=== PATIENT | male | born 1940 | race Caucasian/White ===

== ENCOUNTER → 2016-10-28 | Outpatient (CLI) | payer MEDICARE ==
[2016-10-28 07:56] LABS: CH 30.1; CHCM 33.4; HCT 45.4 % (39.0-53.0); HDW 2.81; HGB 14.7 gm/dL (13.0-17.5); MCH 29.2 pg (25.0-35.0); MCHC 32.3 g/dL (31.0-37.0); MCV 90.6 fL (80.0-100.0); Mean Platelet Volume 7.2; RBC 5.01 m/uL (4.30-5.90); RDW 13.6 % (11.5-15.5); WBC 6.2 k/uL (3.8-10.6)
[2016-10-28 08:00] LABS: Appearance,Urine Clear (Clear); Bilirubin,Urine Negative (Negative); Glucose,Urine (UA) Negative (Negative); Ketones,Urine Negative (Negative); Leukocyte Esterase,Urine Negative (Negative); Mucus,Urine Rare /hpf; Nitrite,Urine Negative (Negative); Particle Count 614; Protein,Urine 3+ (Negative); RBC,Urine <1 /hpf (0-5); Specific Gravity,Urine 1.013 (1.001-1.035); Squamous Epithelial Cell,Urine <1 /hpf (0-4); UA Billing (MACRO vs. MICRO) MICRO; Urobilinogen,Urine <2.0 mg/dL (<2.0); WBC,Urine 1 /hpf (0-5)
[2016-10-28 11:10] LABS: Hemoglobin A1C 7.8 % (4.2-6.1)
[2016-10-28 12:14] LABS: ALT 44 U/L (21-72); AST 29 U/L (17-59); Alkaline Phosphatase 60 U/L (38-126); Anion Gap 11 mmol/L; Blood Urea Nitrogen 23 mg/dL (9-20); Calcium 9.6 mg/dL (8.4-10.2); Carbon Dioxide 26 mmol/L (22-30); Chloride 105 mmol/L (98-107); Cholesterol 147 mg/dL (<200); Glucose 162 mg/dL (74-99); HDL Cholesterol 55 mg/dL (40-60); Non-African American GFR(MDRD) 59 (>60 ml/min/1.73 sqM); Potassium 4.8 mmol/L (3.5-5.1); Sodium 142 mmol/L (137-145); Total Bilirubin 0.7 mg/dL (0.2-1.3); Total Protein 7.2 g/dL (6.3-8.2); Triglycerides 181 mg/dL (<150)
== END | disposition home or self-care (01) ==
LOC: LABWHC1 07:19
PROVIDERS: ATTEND Internal Medicine
DX: E11.9 Type 2 diabetes mellitus without complications (principal); N40.0 Benign prostatic hyperplasia without lower urinary tract symptoms; E78.5 Hyperlipidemia, unspecified
CPT/HCPCS: 80061; 80053; 83036; 85027; 81001; 82043; 36415; G0103

== ENCOUNTER → 2017-06-16 | Outpatient (CLI) | payer MEDICARE ==
[2017-06-16 07:26] LABS: Basophils % (A) 0 %; CH 30.5; CHCM 33.1; Eosinophils # (A) 0.2 k/uL (0-0.7); Eosinophils % (A) 3 %; HCT 47.1 % (39.0-53.0); HDW 2.85; HGB 15.6 gm/dL (13.0-17.5); Luc # (Auto) 0.22; Luc % (Auto) 3; Lymphocytes # (A) 1.7 k/uL (1.0-4.8); Lymphocytes % (A) 22 %; MCH 30.6 pg (25.0-35.0); MCHC 33.1 g/dL (31.0-37.0); MCV 92.5 fL (80.0-100.0); Mean Platelet Volume 7.4; Monocytes # (A) 0.5 k/uL (0-1.0); Monocytes % (A) 7 %; Neutrophils # (A) 4.8 k/uL (1.3-7.7); Neutrophils % (A) 64 %; RBC 5.09 m/uL (4.30-5.90); RDW 13.6 % (11.5-15.5); WBC 7.4 k/uL (3.8-10.6); WBC (Perox) 8.22
[2017-06-16 07:56] LABS: ALT 58 U/L (21-72); AST 30 U/L (17-59); Alkaline Phosphatase 73 U/L (38-126); Anion Gap 12 mmol/L; Blood Urea Nitrogen 21 mg/dL (9-20); Calcium 9.6 mg/dL (8.4-10.2); Carbon Dioxide 24 mmol/L (22-30); Chloride 103 mmol/L (98-107); Cholesterol 154 mg/dL (<200); Glucose 276 mg/dL (74-99); HDL Cholesterol 45 mg/dL (40-60); Non-African American GFR(MDRD) 54 (>60 ml/min/1.73 sqM); Potassium 4.9 mmol/L (3.5-5.1); Sodium 139 mmol/L (137-145); Total Bilirubin 0.5 mg/dL (0.2-1.3); Total Protein 7.2 g/dL (6.3-8.2)
[2017-06-16 11:34] LABS: Urine Creatinine 143.8 mg/dL
[2017-06-16 12:43] LABS: Hemoglobin A1C 8.5 % (4.2-6.1)
== END | disposition home or self-care (01) ==
LOC: LABWHC1 06:33
PROVIDERS: ATTEND Internal Medicine Endocrinology, Diabetes & Metabolism
DX: E11.65 Type 2 diabetes mellitus with hyperglycemia (principal); I10 Essential (primary) hypertension
CPT/HCPCS: 36415; 80053; 80061; 82043; 82306; 82570; 83036; 85025

== ENCOUNTER → 2017-09-14 | Outpatient (CLI) | payer MEDICARE ==
[2017-09-14 10:27] LABS: ALT 48 U/L (21-72); AST 21 U/L (17-59); Albumin 3.9 g/dL (3.5-5.0); Alkaline Phosphatase 63 U/L (38-126); Anion Gap 10 mmol/L; Blood Urea Nitrogen 21 mg/dL (9-20); Calcium 9.6 mg/dL (8.4-10.2); Carbon Dioxide 25 mmol/L (22-30); Chloride 106 mmol/L (98-107); Cholesterol 260 mg/dL (<200); Glucose 222 mg/dL (74-99); HDL Cholesterol 46 mg/dL (40-60); LDL Cholesterol,Calculated 139 mg/dL (0-99); Potassium 4.6 mmol/L (3.5-5.1); Sodium 141 mmol/L (137-145); Total Bilirubin 0.4 mg/dL (0.2-1.3); Total Protein 6.9 g/dL (6.3-8.2); Triglycerides 376 mg/dL (<150)
[2017-09-14 10:55] LABS: PSA Annual Screen 0.75 ng/mL (0.00-4.00)
[2017-09-14 12:48] LABS: Hemoglobin A1C 9.3 % (4.0-6.0)
== END ==
LOC: LABWHC1 06:39
PROVIDERS: ATTEND Internal Medicine Endocrinology, Diabetes & Metabolism
DX: E11.65 Type 2 diabetes mellitus with hyperglycemia (principal); I10 Essential (primary) hypertension; E78.2 Mixed hyperlipidemia
CPT/HCPCS: 80061; 80053; 82306; 83036; 36415; G0103

== ENCOUNTER 2017-09-28 08:00 | Day surgery (SDC) | payer MEDICARE ==
[2017-09-27 12:19] VITALS: BMI 29.8
[~2017-09-28 08:00] MED LIST: LACTATED RINGERS 1,000 ML IV SCH
[2017-09-28 09:37] VITALS: TEMP 97.7
[2017-09-28] MEDS ORDERED: LIDOCAINE 1% 20 ML VIAL (10MG/ML) FOR IV START INTRADERMA ONE (09:37)
[2017-09-28 09:40] LABS: Glucose,Whole Blood 192 mg/dL (75-99)
--- NOTE | 2017-09-28 09:51 | P.PCN ---
Date of Procedure: 09/28/17 Surgeon: Woodrow Lopez Pathology: none sent Condition: stable Disposition: PACU Description of Procedure: PREOPERATIVE DIAGNOSIS: 1-Bilateral sacroiliitis. 2 Lumbar DDD POSTOPERATIVE DIAGNOSIS:. 1-Bilateral sacroiliitis. 2 Lumbar DDD PROCEDURES: Bilateral Sacroiliac joint steroid injection with fluoroscopic guidance ANESTHESIA: Local with 1% lidocaine; conscious sedation EBL: Minimal. PROCEDURE INDICATIONS: This patient with a history of low back pain secondary to sacroiliitis and lumbar DDD unresponsive to conservative management. No use of blood thinners, SIJ injection #1 today. PROCEDURE DESCRIPTION: The patient was seen and identified in the preoperative area. Risks, benefits, complications, and alternatives were discussed with the patient (including but not limited to incomplete pain relief, bleeding, infection, nerve damage, and allergies to medications), the patient agreed to proceed with the procedure and signed the consent after all questions were answered. Patient was taken to the OR and time out was completed to verify proper patient , position, laterality of pain, and allergies. Pt was placed in the prone position and a pillow was placed under the abdomen to reduce lumbar lordosis. The lumbosacral area was prepped and draped in the usual sterile fashion. Critical pause was taken. Vital signs were closely monitored during the procedure. The fluoroscopic camera was placed in contralateral oblique view and right sacroiliiac joint lower pole was identified. After local infiltration with 1% lidocaine 2 ml, Subsequently, a 22-gauge 3.5 inch spinal needle was introduced into the posteroinferior aspect of the right sacroiliac joint under direct fluoroscopic visualization. Subsequently, 3 ml of a solution of a total of 6 ml solution containing total 4 mL of 0.5% preservative-free bupivicaine mixed with 40 mg of Kenalog was injected after negative aspiration for CSF, blood, and air and negative for paresthesia. The entire procedure was repeated on the left side as above. Needle was withdrawn intact. Skin was cleansed, and bandages were applied. COMPLICATIONS: None. COMMENTS: DISPOSITION / PLANS: The patient was placed in a supine position and transferred to the recovery area in a stable condition for observation and was discharged from the recovery room after meeting discharge criteria. Home discharge instructions given to the patient by the staff. The patient was reexamined prior to discharge and there were no issues. The patient will schedule a visit in clinic in 3-4 weeks.
[2017-09-28 10:03] VITALS: RESP 18
[2017-09-28 10:23] VITALS: BP 178/83; PULSE 67
[2017-09-28] MEDS ORDERED: IV FLUID CONTINUATION 1,000 ML IV ONE (10:23)
--- NOTE | 2017-09-28 11:16 | FL ---
EXAMINATION TYPE: FL guided pain mgmt statistic DATE OF EXAM: 09/28/2017 HISTORY: Flouroscopy time 5 seconds of fluoroscopy provided. IMPRESSION: 1. Fluoroscopy time.
== END 2017-09-28 10:30 | disposition home or self-care (01) ==
LOC: ORPAIN 08:00
PROVIDERS: ATTEND Anesthesiology
DX: M46.1 Sacroiliitis, not elsewhere classified (principal); M51.36 Other intervertebral disc degeneration, lumbar region; I10 Essential (primary) hypertension; E11.9 Type 2 diabetes mellitus without complications
CPT/HCPCS: J3301; Q9965; J2001; G0260

== ENCOUNTER → 2017-10-25 | Outpatient (CLI) | payer MEDICARE ==
[2017-10-25 13:00] VITALS: BP 159/82; PULSE 72; RESP 16
--- NOTE | 2017-10-25 13:02 | P.PN ---
Progress Note - Text Progress Note Date: 10/25/17 Patient returns for followup for chronic back pain with radiation to hips. Patient recently underwent bilateral SIJ injection x 1, which provided some relief for only 4-5 days' interval. Patient continues on OTC Motrin and Tylenol medications for pain with mild relief. Patient denies adverse drug effects from medications. Today, pt denies new-onset weakness, bowel/bladder incontinence, or any other signs or symptoms of cauda equina syndrome. There are no signs of acute intoxication, and no indications of medication diversion or overuse. In addition to above, 13-point review of systems is also negative for chest pain , shortness of breath, changes in vision, changes in hearing, new onset weakness , abdominal pain, diarrhea, extreme fatigue, malaise, fever, skin changes, homicidal or suicidal ideation, or bowel or bladder incontinence. Vital Signs: Reviewed in EMR Gen: WDWN, AAOx3, NAD HEENT: NCAT, EOMI, hearing grossly normal Pulm: resp unlabored Abd: soft, NT, ND Neck: supple, trachea midline ROM in flexion lumbar spine: reduced ROM in extension lumbar spine: reduced Lumbar paravertebral tenderness: + Facet loading: + bilateral, L > R SI joint tenderness: + L > R Abhay's test: + L > R Straight leg raise: neg Lower extremity: decreased ROM dorsiflexion/plantarflexion strength, hip flexion/extension, and knee flexion/extension secondary to pain Neuro: CN II-XII grossly intact, muscle strength lower extremities PRESERVED Imaging: Reviewed in EMR Assessment: 1. lumbar PLPS 2. SIJ dysfunction 3. lumbar spondylosis 4. chronic pain syndrome Plan: 1. Explanation: Opioid and psychological risk scores were reviewed. Diagnoses , prognoses, and multiple treatment options including but not limited to physical therapy, interventional therapies, adjuvant medical therapies, narcotic medication therapies, and surgery were discussed with the patient and all questions were answered to the patient's satisfaction. 2. Opioid agreement: no opioids prescribed today 3. Counseling: The patient was counseled extensively on BODY MASS INDEX, EXERCISE. Specifically, the patient was instructed regarding the importance of weight control, and exercise in the context of both chronic pain and overall health. 4. Procedures: lumbar MBB bilateral L3-S1 5. Consultations: none 6. Investigations: none 7. Medications: none prescribed 8. Disposition: f/u for procedure as scheduled PQRS measures: 1-Patient's medications are documented in the chart. 2-Tobacco use is negative 3-Patient has not had a pneumococcal vaccine. 4-Advanced care planning discussed, patient unable to give. 5-Opioid contract NOT signed with the patient. 6-Pain positive, follow-up visit or procedure scheduled 7-Patient's blood pressure measured and documented, and patient will follow up with the primary care due to hypertension. 8-Patient's weight was measured, and body mass index ABOVE the normal limits, and counseling was done. Patient instructed to follow up with PCP. 9-Patient WAS NOT identified as an unhealthy alcohol user.
== END | disposition home or self-care (01) ==
LOC: PNWHC3 12:28
PROVIDERS: ATTEND Anesthesiology
DX: G89.4 Chronic pain syndrome (principal); M54.9 Dorsalgia, unspecified; M47.816 Spondylosis without myelopathy or radiculopathy, lumbar region; M53.88 Other specified dorsopathies, sacral and sacrococcygeal region; G97.1 Other reaction to spinal and lumbar puncture; Z79.1 Long term (current) use of non-steroidal anti-inflammatories (NSAID); Z79.891 Long term (current) use of opiate analgesic
CPT/HCPCS: 99211

== ENCOUNTER 2017-11-17 07:11 | Day surgery (SDC) | payer MEDICARE ==
[2017-11-15 10:16] VITALS: BMI 29.9
[2017-11-17 07:30] VITALS: TEMP 98
[2017-11-17] MEDS ORDERED: LACTATED RINGERS 1,000 ML IV ONE (07:31)
[2017-11-17] MEDS ORDERED: LIDOCAINE 1% 20 ML VIAL (10MG/ML) FOR IV START INTRADERMA ONE (07:31)
--- NOTE | 2017-11-17 08:09 | P.PCN ---
Date of Procedure: 11/17/17 Surgeon: Woodrow Lopez Pathology: none sent Condition: stable Disposition: PACU Description of Procedure: PREOPERATIVE DIAGNOSIS: Lumbar spondylosis without myelopathy and facet arthropathy. POSTOPERATIVE DIAGNOSIS: Lumbar spondylosis without myelopathy and facet arthropathy. PROCEDURE DESCRIPTION: Patient presents for L3-L4, L4-L5 and L5-S1 diagnostic medial branch blocks under fluoroscopic guidance. The procedure is performed using fluoroscopic guidance during needle placement to assure proper position and maximize safety. ANESTHESIA: Local with 1% lidocaine; conscious sedation EBL: Minimal PROCEDURE INDICATION: Patient with lumbar facet arthropathy signs and symptoms, here for diagnostic medial branch block #1 today. Pt does not take any blood thinning medications. PROCEDURE DESCRIPTION: The patient was seen and identified in the preoperative area. Risks, benefits, complications, and alternatives were discussed with the patient (including but not limited to incomplete pain relief, bleeding, infection, nerve damage, and allergies to medications), the patient agreed to proceed with the procedure and signed the consent after all questions were answered. Patient was taken to the OR and time out was completed to verify proper patient, position, laterality of pain, and allergies. Pt was placed in the prone position and a pillow was placed under the abdomen to reduce lumbar lordosis. The lumbosacral area was prepped and draped in the usual sterile fashion. Using oblique fluoroscopy, the eye of the "Dane dog" of right L4 vertebral body, which corresponds to the path of the medial branch originating from the level above, which is L3 in this case, was identified. Subsequently, a 22-gauge 3.5-inch spinal needle was inserted under fluoroscopic guidance toward the eye of the "Dane dog" of the right L4 vertebral body, corresponding to the junction of the superior articular process and the transverse process of the pedicle of the same level. After needle tip confirmation on lateral view and after negative aspiration for CSF and blood and without paresthesias, 1 mL of a 6 ml solution of 0.5% preservative-free bupivacaine and 40 mg Kenalog was injected. Subsequently the needle was withdrawn intact and the same procedure was repeated for the right L4, right L5, left L3, left L4, and left L5 medial branches which together with right L3 medial branch correspond to the sensory innervation of the bilateral L3-L4, L4-L5, and L5-S1 facet joints. Needle was withdrawn intact after each injection. At the end of the procedure, the skin was cleansed and bandages were applied. COMPLICATIONS: None. DISPOSITION/PLAN: The patient taken to the recovery area after the procedure in a stable condition for observation. Patient was reexamined prior to discharge and there were no issues. Patient was discharged home, accompanied by an adult, after meeting discharged criteria. Discharge instructions were give to the patient by the staff. Patient was specifically instructed not to drive today and to rest for the rest of the day.
[2017-11-17] MEDS ORDERED: IV FLUID CONTINUATION 600 ML IV ONE (08:16)
[2017-11-17 08:24] LABS: Glucose,Whole Blood 174 mg/dL (75-99)
[2017-11-17 08:25] VITALS: RESP 16
--- NOTE | 2017-11-17 08:58 | FL ---
EXAMINATION TYPE: FL guided pain mgmt statistic DATE OF EXAM: 11/17/2017 HISTORY: Flouroscopy time 14 seconds of fluoroscopy provided. IMPRESSION: 1. Fluoroscopy time.
[2017-11-17 09:04] VITALS: BP 153/70; PULSE 78
== END 2017-11-17 08:51 | disposition home or self-care (01) ==
LOC: ORPAIN 07:11
PROVIDERS: ATTEND Anesthesiology
DX: G89.4 Chronic pain syndrome (principal); M47.816 Spondylosis without myelopathy or radiculopathy, lumbar region; G54.6 Phantom limb syndrome with pain; M53.3 Sacrococcygeal disorders, not elsewhere classified; I10 Essential (primary) hypertension; E11.9 Type 2 diabetes mellitus without complications; Z79.1 Long term (current) use of non-steroidal anti-inflammatories (NSAID); Z79.899 Other long term (current) drug therapy
CPT/HCPCS: 64493; 64494; 64495; J2250; J3301; 99152

== ENCOUNTER 2017-12-15 06:27 | Day surgery (SDC) | payer MEDICARE ==
[2017-12-09 13:23] VITALS: BMI 29.0
[2017-12-15] MEDS ORDERED: LACTATED RINGERS 1,000 ML IV ONE (07:15)
[2017-12-15 07:23] VITALS: RESP 18; TEMP 98.4
[2017-12-15 07:49] LABS: Glucose,Whole Blood 155 mg/dL (75-99)
[2017-12-15] MEDS ORDERED: IV FLUID CONTINUATION 1,000 ML IV ONE (08:00)
[2017-12-15 08:24] VITALS: BP 143/75; PULSE 72
--- NOTE | 2017-12-15 08:31 | P.PCN ---
Date of Procedure: 12/15/17 Surgeon: Woodrow Lopez Pathology: none sent Condition: stable Disposition: PACU Description of Procedure: PREOPERATIVE DIAGNOSIS: Lumbar spondylosis without myelopathy and facet arthropathy. POSTOPERATIVE DIAGNOSIS: Lumbar spondylosis without myelopathy and facet arthropathy. PROCEDURE DESCRIPTION: Patient presents for L3-L4, L4-L5 and L5-S1 diagnostic medial branch block #2 under fluoroscopic guidance. The procedure is performed using fluoroscopic guidance during needle placement to assure proper position and maximize safety. ANESTHESIA: Local with 1% lidocaine; conscious sedation EBL: Minimal PROCEDURE INDICATION: Patient with lumbar facet arthropathy signs and symptoms, here for diagnostic medial branch block #2 today after 3 days >70% pain relief from MBB #1. Pt does not take any blood thinning medications. PROCEDURE DESCRIPTION: The patient was seen and identified in the preoperative area. Risks, benefits, complications, and alternatives were discussed with the patient (including but not limited to incomplete pain relief, bleeding, infection, nerve damage, and allergies to medications), the patient agreed to proceed with the procedure and signed the consent after all questions were answered. Patient was taken to the OR and time out was completed to verify proper patient, position, laterality of pain, and allergies. Pt was placed in the prone position and a pillow was placed under the abdomen to reduce lumbar lordosis. The lumbosacral area was prepped and draped in the usual sterile fashion. Using oblique fluoroscopy, the eye of the "Dane dog" of right L4 vertebral body, which corresponds to the path of the medial branch originating from the level above, which is L3 in this case, was identified. Subsequently, a 22-gauge 3.5-inch spinal needle was inserted under fluoroscopic guidance toward the eye of the "Dane dog" of the right L4 vertebral body, corresponding to the junction of the superior articular process and the transverse process of the pedicle of the same level. After needle tip confirmation on lateral view and after negative aspiration for CSF and blood and without paresthesias, 1 mL of a 6 ml solution of 0.5% preservative-free bupivacaine and 40 mg Kenalog was injected. Subsequently the needle was withdrawn intact and the same procedure was repeated for the right L4, right L5, left L3, left L4, and left L5 medial branches which together with right L3 medial branch correspond to the sensory innervation of the bilateral L3-L4, L4-L5, and L5-S1 facet joints. Needle was withdrawn intact after each injection. At the end of the procedure, the skin was cleansed and bandages were applied. COMPLICATIONS: None. DISPOSITION/PLAN: The patient taken to the recovery area after the procedure in a stable condition for observation. Patient was reexamined prior to discharge and there were no issues. Patient was discharged home, accompanied by an adult, after meeting discharged criteria. Discharge instructions were give to the patient by the staff. Patient was specifically instructed not to drive today and to rest for the rest of the day. Patient will follow up in clinic in 4-6 weeks for further evaluation.
--- NOTE | 2017-12-15 12:42 | FL ---
Fluoroscopy HISTORY: Pain 11 seconds fluoroscopy time supplied to the referring clinician. 6 intraoperative C-arm images docum ent the procedure. See dictated report from anesthesia.
== END 2017-12-15 08:53 | disposition home or self-care (01) ==
LOC: ORPAIN 06:27
PROVIDERS: ATTEND Anesthesiology
DX: M47.816 Spondylosis without myelopathy or radiculopathy, lumbar region (principal); I11.0 Hypertensive heart disease with heart failure; I50.9 Heart failure, unspecified; E11.9 Type 2 diabetes mellitus without complications; E78.5 Hyperlipidemia, unspecified
CPT/HCPCS: 64493; 64494; 64495; J2250; J3301; 99152

== ENCOUNTER → 2018-01-18 | Outpatient (CLI) | payer MEDICARE ==
--- NOTE | 2018-01-18 14:11 | P.PN ---
Progress Note - Text Progress Note Date: 01/18/18 Patient returns for followup for chronic back pain with radiation to hips. Patient recently underwent bilateral LMBB x 2, the second with > 70% relief of his pain for two weeks. Patient continues on OTC Motrin and Tylenol medications for pain with mild relief. Patient denies adverse drug effects from medications. Today, pt denies new-onset weakness, bowel/bladder incontinence, or any other signs or symptoms of cauda equina syndrome. There are no signs of acute intoxication, and no indications of medication diversion or overuse. In addition to above, 13-point review of systems is also negative for chest pain , shortness of breath, changes in vision, changes in hearing, new onset weakness , abdominal pain, diarrhea, extreme fatigue, malaise, fever, skin changes, homicidal or suicidal ideation, or bowel or bladder incontinence. Vital Signs: Reviewed in EMR Gen: WDWN, AAOx3, NAD HEENT: NCAT, EOMI, hearing grossly normal Pulm: resp unlabored Abd: soft, NT, ND Neck: supple, trachea midline ROM in flexion lumbar spine: reduced ROM in extension lumbar spine: reduced Lumbar paravertebral tenderness: + Facet loading: + bilateral, R > L SI joint tenderness: + bilateral Abhay's test: + R > L Straight leg raise: neg Imaging: Reviewed in EMR Assessment: 1. lumbar PLPS 2. SIJ dysfunction 3. lumbar spondylosis 4. chronic pain syndrome Plan: 1. Explanation: Opioid and psychological risk scores were reviewed. Diagnoses , prognoses, and multiple treatment options including but not limited to physical therapy, interventional therapies, adjuvant medical therapies, narcotic medication therapies, and surgery were discussed with the patient and all questions were answered to the patient's satisfaction. 2. Opioid agreement: no opioids prescribed today 3. Counseling: The patient was counseled extensively on BODY MASS INDEX, EXERCISE. Specifically, the patient was instructed regarding the importance of weight control, and exercise in the context of both chronic pain and overall health. 4. Procedures: R lumbar RFA L3-S1, then left lumbar RFA 5. Consultations: none 6. Investigations: none 7. Medications: none prescribed 8. Disposition: f/u for procedure as scheduled PQRS measures: 1-Patient's medications are documented in the chart. 2-Tobacco use is negative 3-Patient has not had a pneumococcal vaccine. 4-Advanced care planning discussed, patient unable to give. 5-Opioid contract NOT signed with the patient. 6-Pain positive, follow-up visit or procedure scheduled 7-Patient's blood pressure measured and documented, and patient will follow up with the primary care due to hypertension. 8-Patient's weight was measured, and body mass index ABOVE the normal limits, and counseling was done. Patient instructed to follow up with PCP. 9-Patient WAS NOT identified as an unhealthy alcohol user.
[2018-01-18 14:23] VITALS: BP 167/81; PULSE 79; RESP 16
== END | disposition home or self-care (01) ==
LOC: PNWHC3 13:52
PROVIDERS: ATTEND Anesthesiology
DX: G89.4 Chronic pain syndrome (principal); M54.9 Dorsalgia, unspecified; M47.816 Spondylosis without myelopathy or radiculopathy, lumbar region; M53.88 Other specified dorsopathies, sacral and sacrococcygeal region; G97.1 Other reaction to spinal and lumbar puncture; Z79.1 Long term (current) use of non-steroidal anti-inflammatories (NSAID); Z79.891 Long term (current) use of opiate analgesic
CPT/HCPCS: 99211

== ENCOUNTER 2018-01-20 07:40 | Day surgery (SDC) | payer MEDICARE ==
[2018-01-20 09:25] VITALS: RESP 18; TEMP 98.2
[2018-01-20] MEDS ORDERED: LIDOCAINE 1% 20 ML VIAL (10MG/ML) FOR IV START INTRADERMA ONE (09:26)
[2018-01-20] MEDS ORDERED: LACTATED RINGERS 1,000 ML IV ONE (09:26)
[2018-01-20 09:30] LABS: Glucose,Whole Blood 202 mg/dL (75-99)
--- NOTE | 2018-01-20 09:34 | P.PCN ---
Anesthesia: local Surgeon: Pantera Zapata Description of Procedure: Procedure(s) Performed: PREOPERATIVE DIAGNOSIS: 1. Lumbar Spondylosis with Facet Arthropathy without myelopathy. 2-. Lumber degenerative disc disease POSTOPERATIVE DIAGNOSIS: 1. Lumbar Spondylosis with Facet Arthropathy without myelopathy. 2-. Lumber degenerative disc disease PROCEDURES: right Radiofrequency thermocoagulation, L3,L4,L5, sacral Ala medial branch, with fluoroscopic guidance SURGEON: Pantera Zapata MD. ANESTHESIA: Moderate sedation with intravenous versed 2 mg and fentanyl 100 mcg and local infiltration with lidocaine 1% 4 ml EBL: Minimal PROCEDURE INDICATION: The patient with low back pain secondary to lumbar facet arthropathy. He has undergone 2 previous diagnostic medial branch nerve blocks. Each of these reversed his pain by greater than 70%. Pain is bilateral. His right side seems to be worse than the left and therefore we will proceed with right lumbar radio frequency ablation today. PROCEDURE DESCRIPTION / TECHNIQUE: The patient was seen and identified in the preoperative area. Risks, benefits, complications, including but not limited to risk of infection ,bleeding , allergic reactions to the medications and no complete pain releife , and alternatives were discussed with the patient, the patient agreed to proceed with the procedure and signed the consent. IV was started. Vital signs remained stable throughout the procedure. Patient was taken to the OR and time out was completed. The patient was placed in the prone position on the procedure table. The lumber area was prepped and draped in the usual sterile fashion. . Vital signs were closely monitored during the procedure .IV sedation was used during the procedure to decrease patients anxiety. Using AP and then oblique fluoroscopy, the ``eye of the Dane dog corresponding to the connection between the superior and transverse articular processes of the above levels were identified, marked, and localized with 1% lidocaine. Subsequently, a 18 -mm radiofrequency cannula with a 10-mm active tip was advanced guided by fluoroscopy to each of the ``eyes of the Dane dog at each site then underwent sensory testing at 50 Hz and 0 to 1 volt and motor testing at 2.5 Hz and 0 to 3 volt with local stimulation, but no radicular symptoms down the legs. Then the sites underwent radiofrequency thermocoagulation at 80 degrees celsius for 90 seconds after injecting 0.5 ml of PF lidocaine 1%. then After the thermocoagulation done , 1 ml of the block solution containing depomedrol 40 mg and 4 ml of maraine 0.5% was injected at theat each, levels after negative aspiration of CSF and blood and with no paresthesias. Cannulas were retracted while injecting lidocaine 1% until the needle is out.. At the end of the procedure, the skin was cleansed and bandages were applied. COMPLICATIONS: No acute complications. DISPOSITION / PLANS: The patient was placed in a supine position and transferred to the recovery area in a stable condition for observation and was discharged from the recovery room after meeting discharge criteria. Home discharge instructions given to the patient by the staff. The patient was reexamined prior to discharge. He will follow-up in 2-4 weeks for radiofrequency ablation of the left lumbar medial branches at L3, L4, L5 and sacral ala..
[2018-01-20] MEDS ORDERED: IV FLUID CONTINUATION 1,000 ML IV ONE ×2 (10:09)
--- NOTE | 2018-01-20 10:11 | FL ---
EXAMINATION TYPE: FL guided pain mgmt statistic DATE OF EXAM: 01/20/2018 HISTORY: Flouroscopy time 4 seconds of fluoroscopy provided. IMPRESSION: 1. Fluoroscopy time.
[2018-01-20 10:15] VITALS: PULSE 72
[2018-01-20 10:20] LABS: Glucose,Whole Blood 233 mg/dL (75-99)
[2018-01-20 10:33] VITALS: BP 162/95
== END 2018-01-20 10:47 | disposition home or self-care (01) ==
LOC: ORPAIN 07:40
PROVIDERS: ATTEND Anesthesiology
DX: M47.816 Spondylosis without myelopathy or radiculopathy, lumbar region (principal); M51.36 Other intervertebral disc degeneration, lumbar region
CPT/HCPCS: 64635; 64636; J2250; J1030; J2001; J3010; 99152

== ENCOUNTER 2018-02-06 11:07 | Emergency (ER) | payer MEDICARE ==
--- NOTE | 2018-02-06 11:59 | ED ---
Back Pain HPI - General Chief Complaint: Back Pain/Injury Stated Complaint: Back pain Time Seen by Provider: 02/06/18 11:27 Source: patient, RN notes reviewed Limitations: no limitations - History of Present Illness Initial Comments: This is a 77-year-old male history diabetes hypertension and prior staph infection of his lumbar spine region he states he had an injection done about a week ago he's been having pain since that time. He points to his right low back lower lumbar spine region he states her some radiation to his upper right buttock area. He denies any urinary or fecal incontinence or loss of function to his lower extremities. No fevers no chills no sweats. The pain is about 7/ 10 in severity he states is usually dull was occasionally gets sharper. It increases with movement. He is concerned due to his previous history of infection. He voices no other complaints at this time no other modifying factors. MD Complaint: back pain - Related Data Home Medications Medication Instructions Recorded Confirmed Pioglitazone [Actos] 30 mg PO DAILY 08/26/17 02/04/18 Repaglinide [Prandin] 0.5 mg PO BID 08/26/17 02/04/18 Rosuvastatin [Crestor] 10 mg PO DAILY 08/26/17 02/04/18 metFORMIN HCL [Glucophage] 500 mg PO BID 08/26/17 02/04/18 sitaGLIPtin [Januvia] 50 mg PO DAILY 08/26/17 02/04/18 Quinapril HCl [Accupril] 5 mg PO DAILY 09/27/17 02/04/18 Acetaminophen [Tylenol] 500 mg PO DAILY PRN 10/25/17 02/04/18 Ibuprofen [Motrin] 400 mg PO DAILY PRN 10/25/17 02/04/18 Lidocaine 5% Patch [Lidoderm] 1 patch TOPICAL Q12H PRN 02/04/18 02/04/18 Allergies Allergy/AdvReac Type Severity Reaction Status Date / Time No Known Allergies Allergy Verified 02/06/18 11:11 Review of Systems ROS Statement: Those systems with pertinent positive or pertinent negative responses have been documented in the HPI. ROS Other: All systems not noted in ROS Statement are negative. Past Medical History Past Medical History: Diabetes Mellitus, Hyperlipidemia, Hypertension Additional Past Medical History / Comment(s): 2005 staph infection in the spine , chronic back pain History of Any Multi-Drug Resistant Organisms: None Reported Additional Past Surgical History / Comment(s): hemorrhoidectomy, removal of encapsulated pocket of infection from spine, pain procedures. Past Anesthesia/Blood Transfusion Reactions: No Reported Reaction Past Psychological History: No Psychological Hx Reported Smoking Status: Former smoker Past Alcohol Use History: None Reported Past Drug Use History: None Reported - Past Family History Mother Family Medical History: Cancer Additional Family Medical History / Comment(s): UTERINE CANCER Brother(s) Family Medical History: Cancer Additional Family Medical History / Comment(s): COLON CANCER Father Family Medical History: Cancer Son(s) Family Medical History: Cancer General Exam - General Exam Comments Initial Comments: This is a well-developed well-nourished awake alert oriented times 3 male Limitations: no limitations General appearance: alert, in no apparent distress Head exam: Present: atraumatic, normocephalic, normal inspection Eye exam: Present: normal appearance, PERRL, EOMI. Absent: scleral icterus, conjunctival injection, periorbital swelling ENT exam: Present: normal exam Neck exam: Present: normal inspection, full ROM. Absent: tenderness, meningismus, lymphadenopathy Respiratory exam: Present: normal lung sounds bilaterally. Absent: respiratory distress, wheezes, rales, rhonchi, stridor Cardiovascular Exam: Present: regular rate, normal rhythm, normal heart sounds. Absent: systolic murmur, diastolic murmur, rubs, gallop, clicks GI/Abdominal exam: Present: soft, normal bowel sounds. Absent: distended, tenderness, guarding, rebound, rigid Rectal exam: Present: deferred Extremities exam: Present: normal inspection, full ROM, normal capillary refill. Absent: tenderness, pedal edema, joint swelling, calf tenderness Back exam: Present: tenderness, paraspinal tenderness (Paraspinous tenderness on the right at the site of the injection no obvious erythema or drainage is seen. There appears be a well-healed midline scar proximal to this. Is some mild tenderness over the right SI joint region and over the upper gluteus.). Absent: CVA tenderness (R), CVA tenderness (L) Neurological exam: Present: alert, oriented X3, CN II-XII intact Psychiatric exam: Present: normal affect, normal mood Course Vital Signs 02/06/18 11:10 Temperature 97.8 F Pulse Rate 83 Respiratory 20 Rate Blood Pressure 206/83 O2 Sat by Pulse 99 Oximetry - Reevaluation(s) Reevaluation #1: 02/06/18 13:19 Patient initially had a pain level about 7/10 he was originally offered pain medication but did not want any he states his pain is low but worse at this time though he appears comfortable he has agreed to accept a shot of Toradol. Medical Decision Making - Medical Decision Making I did discuss findings with the patient he did get some relief from the IV Toradol. He does have Motrin at home he does not want any other pain medication he was given a copy of the CT report he will keep his follow-up in 2 days as planned and return if any issues. - Lab Data Result diagrams: 02/06/18 11:54 02/06/18 11:54 Lab Results 02/06/18 02/06/18 Range/Units 11:54 11:54 WBC 8.3 (3.8-10.6) k/uL RBC 4.93 (4.30-5.90) m/uL Hgb 15.0 (13.0-17.5) gm/dL Hct 45.4 (39.0-53.0) % MCV 92.1 (80.0-100.0) fL MCH 30.4 (25.0-35.0) pg MCHC 33.0 (31.0-37.0) g/dL RDW 14.2 (11.5-15.5) % Plt Count 189 (150-450) k/uL Neutrophils % 79 % Lymphocytes % 13 % Monocytes % 6 % Eosinophils % 2 % Basophils % 0 % Neutrophils # 6.5 (1.3-7.7) k/uL Lymphocytes # 1.0 (1.0-4.8) k/uL Monocytes # 0.5 (0-1.0) k/uL Eosinophils # 0.1 (0-0.7) k/uL Basophils # 0.0 (0-0.2) k/uL Sodium 141 (137-145) mmol/L Potassium 5.0 (3.5-5.1) mmol/L Chloride 104 (98-107) mmol/L Carbon Dioxide 24 (22-30) mmol/L Anion Gap 13 mmol/L BUN 15 (9-20) mg/dL Creatinine 1.00 (0.66-1.25) mg/dL Est GFR (CKD-EPI)AfAm 84 (>60 ml/min/1.73 sqM) Est GFR (CKD-EPI)NonAf 72 (>60 ml/min/1.73 sqM) Glucose 268 H (74-99) mg/dL Calcium 9.7 (8.4-10.2) mg/dL Magnesium 1.7 (1.6-2.3) mg/dL Total Bilirubin 0.5 (0.2-1.3) mg/dL AST 22 (17-59) U/L ALT 36 (21-72) U/L Alkaline Phosphatase 52 (38-126) U/L Total Protein 6.8 (6.3-8.2) g/dL Albumin 4.3 (3.5-5.0) g/dL - Radiology Data Radiology results: report reviewed (I did review the imaging and reports no evidence of acute findings. Degenerative changes are noted.), image reviewed Disposition Clinical Impression: Sciatica, Degeneration of intervertebral disc, Back pain, lumbosacral Disposition: HOME SELF-CARE Condition: Good Instructions: Acute Low Back Pain (ED), Sciatica (ED) Additional Instructions: Keep her follow-up in 2 days as planned Is patient prescribed a controlled substance at d/c from ED?: No Referrals: Rafi Hawk MD [Primary Care Provider] - 1-2 days
[2018-02-06 12:25] LABS: Albumin 4.3 g/dL (3.5-5.0); Calcium 9.7 mg/dL (8.4-10.2); Magnesium 1.7 mg/dL (1.6-2.3); Total Bilirubin 0.5 mg/dL (0.2-1.3); Total Protein 6.8 g/dL (6.3-8.2)
[2018-02-06 12:40] LABS: Basophils % (A) 0 %; Eosinophils # (A) 0.1 k/uL (0-0.7); Eosinophils % (A) 2 %; HCT 45.4 % (39.0-53.0); Lymphocytes % (A) 13 %; MCH 30.4 pg (25.0-35.0); MCV 92.1 fL (80.0-100.0); Mean Platelet Volume 7.2; Monocytes # (A) 0.5 k/uL (0-1.0); Monocytes % (A) 6 %; Neutrophils # (A) 6.5 k/uL (1.3-7.7); Neutrophils % (A) 79 %; Platelet Count 189 k/uL (150-450); RBC 4.93 m/uL (4.30-5.90); RDW 14.2 % (11.5-15.5); WBC 8.3 k/uL (3.8-10.6)
[2018-02-06] MEDS ORDERED: KETOROLAC 30 MG/ML 1 ML VIAL IVP STA (13:18)
--- NOTE | 2018-02-06 13:23 | CT ---
EXAMINATION TYPE: CT lumbar spine w con DATE OF EXAM: 02/06/2018 COMPARISON: NONE HISTORY: Patient complains of low back pain with radiation to the right leg post nerve block 1 week a go for the right side. CT DLP: 746.1 mGycm Automated exposure control for dose reduction was used. CONTRAST: CT scan of the lumbar is performed with IV Contrast, patient injected with 100 mL of Isovue 300. Enhanced CT of the lumbar spine was performed. Bone and soft tissue window settings are submitted as well as coronal and sagittal reconstructions. There are 5 lumbar type vertebra. There is a transitional L6 type vertebra. There is grade 1 anteroli sthesis of L5 on L6. There is asymmetric assimilation right L6 S1 level coronal image 23 with narrowi ng and sclerosis. There is mild to moderate disc space narrowing with vacuum disc phenomenon and ante rior spurring L1-L2 and L2-L3 levels. Posterior spur disc complexes effacing anterior thecal sac L2-L 3 level on sagittal images. There is prior posterior decompression L6 level. Review of axial images shows mild broad disc bulge and vacuum disc phenomenon effacing anterior theca l sac at the L1-L2 level on axial image 17. Bilateral neural foramina are patent. Axial images at L2-L3 level show more moderate broad disc bulge effacing anterior thecal sac on axial image 28. Bilateral neural foramina are patent. Axial images at L3-L4 level show mild facet arthropathy bilaterally near axial image 37. Axial images at L4-L5 level show broad-based posterior disc protrusion effacing anterior thecal sac a nd mild to moderate facet degenerative changes effacing posterior lateral thecal sac on axial image 4 9. There is mild bilateral anterior inferior neural foraminal narrowing at this level identified. Axial images at L5 L6 level show spondylolisthesis and moderate to advanced facet arthropathy. There is posterior decompression. There is mild to moderate bilateral anterior inferior neural foraminal na rrowing due to broad-based disc protrusion and facet arthropathy. Axial images at L6 S1 level show moderate facet degenerative changes bilaterally. There is moderate to severe atherosclerotic change of aorta extending into branch vessels. There are a few simple appearing cysts scattered throughout both kidneys. There are numerous calcifications thr oughout the spleen presumed product of old granulomatous disease. Some calcifications seen at level o f uncinate process of the fairly atrophic pancreas consistent with product of chronic pancreatitis. IMPRESSION: No acute fracture or dislocation. Degenerative and other chronic findings as detailed above.
[2018-02-06 14:07] VITALS: BP 179/81; PULSE 73; RESP 18; TEMP 97.4
== END 2018-02-06 14:07 | disposition home or self-care (01) ==
LOC: EC 11:07
DX: M51.37 Other intervertebral disc degeneration, lumbosacral region (principal); M54.41 Lumbago with sciatica, right side; E11.9 Type 2 diabetes mellitus without complications; E78.5 Hyperlipidemia, unspecified; I10 Essential (primary) hypertension; Z98.890 Other specified postprocedural states; Z87.891 Personal history of nicotine dependence; Z79.84 Long term (current) use of oral hypoglycemic drugs; Z79.899 Other long term (current) drug therapy; Z86.19 Personal history of other infectious and parasitic diseases
CPT/HCPCS: 36415; 80053; 83735; 85025; 72132; 99284; 96374; J1885; Q9967

== ENCOUNTER → 2018-02-08 | Outpatient (CLI) | payer MEDICARE ==
[2018-02-08 11:53] VITALS: BP 118/100; PULSE 83; RESP 16
--- NOTE | 2018-02-08 12:28 | P.PN ---
Progress Note - Text Progress Note Date: 02/08/18 Patient returns for followup for chronic back pain with radiation to hips. Patient recently underwent R lumbar RFA but has had severe pain in both the injection area and down his RLE, which he has never had before. He is extremely upset that a different physician performed his procedure than the one that he is used to doing them. Patient continues on OTC Motrin and Tylenol medications for pain with mild relief. Patient denies adverse drug effects from medications. Today, pt denies new-onset weakness, bowel/bladder incontinence, or any other signs or symptoms of cauda equina syndrome. There are no signs of acute intoxication, and no indications of medication diversion or overuse. In addition to above, 13-point review of systems is also negative for chest pain , shortness of breath, changes in vision, changes in hearing, new onset weakness , abdominal pain, diarrhea, extreme fatigue, malaise, fever, skin changes, homicidal or suicidal ideation, or bowel or bladder incontinence. Vital Signs: Reviewed in EMR Gen: WDWN, AAOx3, NAD HEENT: NCAT, EOMI, hearing grossly normal Pulm: resp unlabored MSK exam not completed Imaging: Reviewed in EMR Assessment: 1. lumbar PLPS 2. SIJ dysfunction 3. lumbar spondylosis 4. chronic pain syndrome Plan: 1. Explanation: Opioid and psychological risk scores were reviewed. Diagnoses , prognoses, and multiple treatment options including but not limited to physical therapy, interventional therapies, adjuvant medical therapies, narcotic medication therapies, and surgery were discussed with the patient and all questions were answered to the patient's satisfaction. 2. Opioid agreement: no opioids prescribed today 3. Counseling: The patient was counseled extensively on BODY MASS INDEX, EXERCISE. Specifically, the patient was instructed regarding the importance of weight control, and exercise in the context of both chronic pain and overall health. 4. Procedures: none 5. Consultations: none 6. Investigations: none 7. Medications: none prescribed 8. Disposition: f/u PRN. Patient had poor experience with lumbar RFA and is concerned pain in low back and RLE will not improve. I reassured him that this type of reaction and pain are very common after RFA, but he stated that he will seek treatment elsewhere. PQRS measures: 1-Patient's medications are documented in the chart. 2-Tobacco use is negative 3-Patient has not had a pneumococcal vaccine. 4-Advanced care planning discussed, patient unable to give. 5-Opioid contract NOT signed with the patient. 6-Pain positive, follow-up visit or procedure scheduled 7-Patient's blood pressure measured and documented, and patient will follow up with the primary care due to hypertension. 8-Patient's weight was measured, and body mass index ABOVE the normal limits, and counseling was done. Patient instructed to follow up with PCP. 9-Patient WAS NOT identified as an unhealthy alcohol user.
== END | disposition home or self-care (01) ==
LOC: PNWHC3 11:16
PROVIDERS: ATTEND Anesthesiology
DX: G89.4 Chronic pain syndrome (principal); M47.816 Spondylosis without myelopathy or radiculopathy, lumbar region; M96.1 Postlaminectomy syndrome, not elsewhere classified; M53.3 Sacrococcygeal disorders, not elsewhere classified; Z79.1 Long term (current) use of non-steroidal anti-inflammatories (NSAID); Z79.899 Other long term (current) drug therapy
CPT/HCPCS: 99211

== ENCOUNTER → 2018-02-16 | Outpatient (CLI) | payer MEDICARE ==
[2018-02-16 07:22] LABS: Albumin 4.4 g/dL (3.5-5.0); Calcium 9.7 mg/dL (8.4-10.2); Total Bilirubin 0.6 mg/dL (0.2-1.3)
[2018-02-16 12:03] LABS: Hemoglobin A1C 8.6 % (4.0-6.0)
== END | disposition home or self-care (01) ==
LOC: LABWHC1 06:34
PROVIDERS: ATTEND Internal Medicine Endocrinology, Diabetes & Metabolism
DX: E11.65 Type 2 diabetes mellitus with hyperglycemia (principal); I10 Essential (primary) hypertension
CPT/HCPCS: 36415; 80053; 80061; 83036

== ENCOUNTER → 2018-03-01 | Outpatient (CLI) | payer MEDICARE ==
--- NOTE | 2018-03-01 16:03 | P.PAINPG ---
Subjective Progress Note Date: 03/01/18 This is follow-up visit for this patient with a history of severe and chronic low back pain secondary to lumbar degenerative disc disease, lumbar facet arthropathy, We have done an interventional pain procedure diagnostic medial branch block lumbar area bilaterally at L3/L4 5/L5-S1, and he get more than 70% decrease in his pain level, And in 01/20/2018 , we have done radiofrequency ablation of the medial branch on the right side, patient reported that his pain increased significantly after the radiofrequency and is currently complaining of severe and localized pain in the right side above the buttock area, pain intensity interfering with his quality of life, he denies any motor or sensory deficit he denies any fever or night sweats. He denies any change in the bowel movement or urination, he continued to have severe pain on the left side also Patient denies any side effect of the medication , patient denies any excessive drowsiness or sleepiness, patient denies any suicidal ideation, Objective - Vital Signs Vital signs: Intake & Output 02/28/18 03/01/18 03/01/18 18:59 06:59 18:59 Weight 84.368 kg - Exam Physical Examinations : 1-Constitutiona : Cooperative , not in acute distress . 2- neurologic : Cranial nerve II to XII intact , no focal neurological deffecit . 3-psychatric : alert , oriented X 3 , appropriate affect , intact judgment and insight . 4-Lymphatic : no Lymphadenopathy . 5- musculoskeltal : , Lumber spine = normal moter stegnth lower extremities ,thigh and legs .5/5 deep tendon reflexes : normal Knee Jerk , normal ankle Jerk . lumber facet Loading Test positive Sever tenderness over the right iliolumbar ligament area Assessment and Plan Plan: Assessment and plan= chronic low back pain secondary to , lumbar spondylosis with lumbar facet arthropathy . Patient had good result after the diagnostic medial branch block status post radiofrequency ablation of the medial branch lumbar area on the right side at L3-4/L4 5/L5-S1, currently he is complaining of severe pain on the right side which is most likely secondary to a right iliolumbar ligament neuralgia , patient could benefit from right iliolumbar ligament block under fluoroscopy guidance, And patient could benefit from radiofrequency ablation of the left second medial branch L3/L4 5/L5-S1 and both procedures can be done and the same time Patient blood pressure is significantly elevated and I talked to the patient about the risk of high blood pressure and he reported that he checked his blood pressure usually with his primary care Dr. Hawk and it's always within normal limits ,and he reported that his blood pressure is elevated only when he comes to the pain clinic Time with Patient: Less than 30 PQRS Measure Charge Sheet Measure #130: Documentation of Current Meds in Medical Chart: Patient's medications documented in chart Measure #226: Tobacco Use: Screen & Cessation Intervention: Pt not a tobacco user Measure #111: Pneumonia Vaccination: Pneumococcal vaccine NOT administered or previously given Measure #47: Advance Care Plan: Advance care planning discussed & documented, plan or surrogate given Measure #412: Opioid Treatment Agreement: No documentation of signed opioid treatment agreement Measure #408: Opioid Therapy Follow-up Evaluation: Patient had NO f/u eval minimum every 3 months during opioid therapy Measure #317: Preventitive Care & Scrn High Bld Press & F/U: Pre-hypertensive or hypertensive BP documented, pt will f/u with PCP Measure #128: Body Mass Index (BMI) Screening & Follow-up: BMI documented ABOVE normal parameters - f/u documented Measure #131: Pain Assessment & Follow-up: Pain positive & plan documented, Follow-up scheduled Measure #431: Unhealthy Alcohol Use Preventative Care & Scrn: Patient not identified as an unhealthy alcohol user PQRS Narrative: Smoking Status Former smoker Do You Want the Pneumonia No Vaccine AT THIS TIME? Pain Intensity [Bilateral 8 Lower Back] Scale Used Numeric (1 - 10) Hx Alcohol Use (MH) Yes: less than 7 qweek Home Medications: Ambulatory Orders Pioglitazone [Actos] 30 mg PO DAILY 08/26/17 Repaglinide [Prandin] 0.5 mg PO BID 08/26/17 Rosuvastatin [Crestor] 10 mg PO DAILY 08/26/17 metFORMIN HCL [Glucophage] 500 mg PO BID 08/26/17 sitaGLIPtin [Januvia] 50 mg PO DAILY 08/26/17 Quinapril HCl [Accupril] 5 mg PO DAILY 09/27/17 Acetaminophen [Tylenol] 500 mg PO DAILY PRN 10/25/17 Ibuprofen [Motrin] 400 mg PO DAILY PRN 10/25/17 Lidocaine 5% Patch [Lidoderm] 1 patch TOPICAL Q12H PRN 06/01/18 Controlled Substance Measures - Controlled Substance Measures Is patient prescribed a controlled substance at discharge?: No When asked, does pt state using other controlled substances?: No If prescribed controlled substance>3 days was MAPS reviewed?: No If Rx opioid, was Start Talking consent form obtained?: No If opioid is for acute pain is fill amount 7 days or less?: No Was information provided regarding opioid addiction?: No
== END | disposition home or self-care (01) ==
LOC: PNWHC3 15:07
PROVIDERS: ATTEND Specialist
DX: G89.29 Other chronic pain (principal); M54.5 Low back pain; M51.36 Other intervertebral disc degeneration, lumbar region; M46.86 Other specified inflammatory spondylopathies, lumbar region; M47.816 Spondylosis without myelopathy or radiculopathy, lumbar region; G58.8 Other specified mononeuropathies; Z87.891 Personal history of nicotine dependence; Z79.1 Long term (current) use of non-steroidal anti-inflammatories (NSAID); Z79.891 Long term (current) use of opiate analgesic; Z79.899 Other long term (current) drug therapy
CPT/HCPCS: 99211

== ENCOUNTER 2018-03-15 06:33 | Day surgery (SDC) | payer MEDICARE ==
[2018-03-11 08:43] VITALS: BMI 29.9
[2018-03-15 07:20] VITALS: RESP 18; TEMP 97.2
[2018-03-15 08:18] LABS: Glucose,Whole Blood 152 mg/dL (75-99)
--- NOTE | 2018-03-15 08:38 | P.PCN ---
Date of Procedure: 03/15/18 Procedure(s) Performed: PREOPERATIVE DIAGNOSIS: 1-Lumbar Spondylosis with Facet Arthropathy without myelopathy. 2-right iliolumbar ligament neuralgia POSTOPERATIVE DIAGNOSIS: 1- Lumbar Spondylosis with Facet Arthropathy without myelopathy. 2-right iliolumbar ligament neuralgia PROCEDURES :1- Left Radiofrequency thermocoagulation, L3-L4, L4-L5, and L5-S1 medial branch, with fluoroscopic guidance. 2-right iliolumbar ligament steroid injections under fluoroscopy guidance ANESTHESIA: Moderate sedation with intravenous versed 2 mg and fentaneyl 100 mcg and local infiltration with lidocaine 1% 6 ml EBL: Minimal PROCEDURE INDICATION: The patient with low back pain secondary to lumbar facet arthropathy who had more than 50% relief of her pain with previous diagnostic lumbar medial branch block with bupivacaine. Patient also complaining of severe pain on the right iliolumbar ligament area and he will be good candidate to have a right iliolumbar ligament steroid injection. PROCEDURE DESCRIPTION / TECHNIQUE: The patient was seen and identified in the preoperative area. Risks, benefits, complications, including but not limited to risk of infection ,bleeding , allergic reactions to the medications and no complete pain releife , and alternatives were discussed with the patient, the patient agreed to proceed with the procedure and signed the consent. IV was started. Vital signs remained stable throughout the procedure. Patient was taken to the OR and time out was completed. The patient was placed in the prone position on the procedure table. The lumber area was prepped and draped in the usual sterile fashion. . Vital signs were closely monitored during the procedure .IV sedation was used during the procedure to decrease patients anxiety. Using AP and then oblique fluoroscopy, the ``eye of the Dane dog corresponding to the connection between the superior and transverse articular processes of left L3, L4, and L5 were identified, marked, and localized with 1 % lidocaine. Subsequently, a 18 [id number] radiofrequency cannula with a 10- mm active tip was advanced guided by fluoroscopy to each of the ``eyes of the Dane dog at left L3, L4, and L5. Each site then underwent sensory testing at 50 Hz and 0 to 1 volt and motor testing at 2.5 Hz and 0 to 3 volt with local stimulation, but no radicular symptoms down the legs. Thereafter the left L3-4 , L4-5, and L5-S1 sites underwent radiofrequency thermocoagulation at 80 degrees celsius for 90 seconds after injecting 0.5 ml of PF lidocaine 1%. then After the thermocoagulation done , 1 ml of the block solution containing Kenalog 30 mg and 3 ml of ropivacain 0.5% was injected at the left L3-4 , L4-5 , and L5-S1, levels after negative aspiration of CSF and blood and with no paresthesias. Cannulas were retracted while injecting lidocaine 1% until the needle is out. The right iliolumbar ligament steroid injection by placing 25-gauge needle at the area between the L5 transverse process and the sacral and on the right side , after negative aspiration, and after needle placement confirmed with the fluoroscopy then ropivacaine 0.5% 3ml mixed with 10 mg of Kenalog injected after negative aspiration At the end of the procedure, the skin was cleansed and bandages were applied. COMPLICATIONS: No acute complications. DISPOSITION / PLANS: The patient was placed in a supine position and transferred to the recovery area in a stable condition for observation and was discharged from the recovery room after meeting discharge criteria. Home discharge instructions given to the patient by the staff. The patient was reexamined prior to discharge. The patient will schedule a follow up in the clinic in 2-4 weeks.
[2018-03-15 09:00] LABS: Glucose,Whole Blood 175 mg/dL (75-99)
[2018-03-15] MEDS: hydrALAZINE HCL 20 MG/ML 1 ML VIAL IVP STA ×2 (09:04→09:54)
[2018-03-15 09:42] VITALS: BP 172/94; PULSE 70
[2018-03-15] MEDS ORDERED: IV FLUID CONTINUATION 1,000 ML IV ONE (10:40)
--- NOTE | 2018-03-15 11:42 | FL ---
Fluoroscopy HISTORY: Pain 17 seconds fluoroscopy time supplied to the referring clinician. 4 intraoperative C-arm images docum ent the procedure. See dictated report from anesthesia.
== END 2018-03-15 10:41 | disposition home or self-care (01) ==
LOC: ORPAIN 06:33
PROVIDERS: ATTEND Specialist
DX: M47.816 Spondylosis without myelopathy or radiculopathy, lumbar region (principal); G58.8 Other specified mononeuropathies; E11.9 Type 2 diabetes mellitus without complications
CPT/HCPCS: 20550; 64635; 64636; J2250; J0360; J3301; J3010; 99152

== ENCOUNTER 2018-03-15 17:13 | Emergency (ER) | payer MEDICARE ==
[2018-03-15] MEDS ORDERED: SODIUM CHLORIDE 0.9% 1,000 ML IV ONE (17:27)
[2018-03-15 17:56] LABS: Glucose,Whole Blood 282 mg/dL (75-99)
[2018-03-15] MEDS ORDERED: INSULIN NPH 300 UNIT/3 ML VIAL SQ ONE (17:57)
--- NOTE | 2018-03-15 18:06 | ED ---
General Adult HPI - General Chief complaint: Recheck/Abnormal Lab/Rx Stated complaint: hyperglycemia Time Seen by Provider: 03/15/18 17:22 Source: patient Mode of arrival: ambulatory Limitations: no limitations - History of Present Illness Initial comments: This is a 77yo male with PMH of DMII and chronic low back pain who presents today for elevated blood glucose reading. Pt states that he was seen here at [facility] for a nerve block in the pain clinic and was also given a steroid injection. They told him that this injection may raise his blood glucose levels and to monitor them more closely. Pt returned home around 10am and took his oral medications for DM including meformin, prandin, genuvia, and actos. 11am he ate oatmeal, he then took a nap then around 2:30pm he ate peaches and a peanut butter sandwhich. Pt took his blood sugar around 5:00pm and stated that the reading was 345. He was worried that this was too high and presented to the emergency department. Pt denies chest pain, palpitations, dyspnea, abdominal pain, nausea, vomiting, visual changes, diaphoresis, back pain malaise, fatigue , confusion, headache, fever, dry mouth, urinary frequency/urgency/dysuria. Upon presentation pt vital signs stable. Physical examination unremarkable-pt denied any abdominal tenderness, BS active all 4 quadrants. Skin tugor instant recoil. No evidence of dry mucous membranes. POC glucose 278 at 5:59pm. UA (-) for ketone. Pt was given 4 units of NPH. Blood sugar was rechecked at -- . Pt ROS at this reevaluation (-). VS stable repeat HR . Case was discussed with Dr. Peters who feels at this time pt is stable for d/c. Pt was educated on low carbohydrate diet which includes reducing/eliminating breads, fruits, , - Related Data Home Medications Medication Instructions Recorded Confirmed Repaglinide [Prandin] 0.5 mg PO BID 08/26/17 03/15/18 Rosuvastatin [Crestor] 10 mg PO DAILY 08/26/17 03/15/18 metFORMIN HCL [Glucophage] 500 mg PO BID 08/26/17 03/15/18 sitaGLIPtin [Januvia] 50 mg PO DAILY 08/26/17 03/15/18 Quinapril HCl [Accupril] 5 mg PO DAILY 09/27/17 03/15/18 Acetaminophen [Tylenol] 500 mg PO DAILY PRN 10/25/17 03/15/18 Ibuprofen [Motrin] 400 mg PO DAILY PRN 10/25/17 03/15/18 Lidocaine 5% Patch [Lidoderm] 1 patch TOPICAL Q12H PRN 02/04/18 03/15/18 Allergies Allergy/AdvReac Type Severity Reaction Status Date / Time No Known Allergies Allergy Verified 03/15/18 18:27 Review of Systems ROS Statement: Those systems with pertinent positive or pertinent negative responses have been documented in the HPI. ROS Other: All systems not noted in ROS Statement are negative. Constitutional: Denies: fever ENT: Denies: ear pain, throat pain Respiratory: Denies: cough, dyspnea Cardiovascular: Denies: chest pain, palpitations, edema Endocrine: Denies: fatigue, polydipsia, polyuria Gastrointestinal: Denies: abdominal pain, nausea, vomiting, diarrhea, constipation Genitourinary: Denies: urgency, dysuria, frequency, hematuria Musculoskeletal: Denies: back pain Skin: Denies: rash Neurological: Denies: weakness, numbness, paresthesias, confusion Past Medical History Past Medical History: Diabetes Mellitus, Hyperlipidemia, Hypertension Additional Past Medical History / Comment(s): 2005 staph infection in the spine , chronic back pain History of Any Multi-Drug Resistant Organisms: None Reported Additional Past Surgical History / Comment(s): hemorrhoidectomy, removal of encapsulated pocket of infection from spine, pain procedures. Past Anesthesia/Blood Transfusion Reactions: No Reported Reaction Past Psychological History: No Psychological Hx Reported Smoking Status: Former smoker Past Alcohol Use History: None Reported Past Drug Use History: None Reported - Past Family History Mother Family Medical History: Cancer Additional Family Medical History / Comment(s): UTERINE CANCER Brother(s) Family Medical History: Cancer Additional Family Medical History / Comment(s): COLON CANCER Father Family Medical History: Cancer Son(s) Family Medical History: Cancer General Exam - General Exam Comments Initial Comments: General: The patient is awake and alert, in no distress, and does not appear acutely ill. Eye: Pupils are equal, round and reactive to light, extra-ocular movements are intact. No nystagmus. There is normal conjunctiva bilaterally. No signs of icterus. Ears, nose, mouth and throat: There are moist mucous membranes and no oral lesions. Neck: The neck is supple, there is no tenderness or JVD. Cardiovascular: There is a regular rate and rhythm. No murmur, rub or gallop is appreciated. Respiratory: Lungs are clear to auscultation, respirations are non-labored, breath sounds are equal. No wheezes, stridor, rales, or rhonchi. Gastrointestinal: Soft, non-distended, non-tender abdomen without masses or organomegaly noted. There is no rebound or guarding present. No CVA tenderness. Bowel sounds are unremarkable. Neurological: A&O x 3. CN II-XII intact, There are no obvious motor or sensory deficits. Coordination appears grossly intact. Speech is normal. Skin: Skin is warm and dry and no rashes or lesions are noted. Skin tugor instant recoil. Psychiatric: Cooperative, appropriate mood & affect, normal judgment. Limitations: no limitations Course Vital Signs 03/15/18 17:16 Temperature 97.5 F L Pulse Rate 107 H Respiratory 20 Rate Blood Pressure 118/67 O2 Sat by Pulse 98 Oximetry Medical Decision Making - Medical Decision Making This is a 77yo male with PMH of DMII and chronic low back pain who presents today for elevated blood glucose reading. Pt states that he was seen here at [facility] for a nerve block in the pain clinic and was also given a steroid injection. They told him that this injection may raise his blood glucose levels and to monitor them more closely. Pt returned home around 10am and took his oral medications for DM including meformin, prandin, genuvia, and actos. 11am he ate oatmeal, he then took a nap then around 2:30pm he ate peaches and a peanut butter sandwhich. Pt took his blood sugar around 5:00pm and stated that the reading was 345. He was worried that this was too high and presented to the emergency department. Pt denies chest pain, palpitations, dyspnea, abdominal pain, nausea, vomiting, visual changes, diaphoresis, back pain malaise, fatigue , confusion, headache, fever, dry mouth, urinary frequency/urgency/dysuria. Upon presentation pt vital signs stable. Physical examination unremarkable-pt denied any abdominal tenderness, BS active all 4 quadrants. Skin tugor instant recoil. No evidence of dry mucous membranes. POC glucose 282 at 5:59pm. UA (-) for ketone. Pt was given 4 units of NPH. Blood sugar was rechecked 6:30 pm 269. Pt ROS at this reevaluation (-). VS stable repeat HR 93. Case was discussed with Dr. Peters who feels at this time pt is stable for d/c. Pt was educated on low carbohydrate diet which includes reducing/eliminating breads, pastas, fruits and sugar containing foods. Pt is to follow-up with PCP for further DM treatment and return to emergency department if symptoms arise. - Lab Data Lab Results 03/15/18 03/15/18 Range/Units 17:53 17:55 POC Glucose (mg/dL) 282 H (75-99) mg/dL POC Glu [employer] Laboratory Supervisor ID Radha Lamb Urine Color Yellow Urine Appearance Clear (Clear) Urine pH 6.0 (5.0-8.0) Ur Specific [place] 1.019 (1.001-1.035) Urine Protein 2+ H (Negative) Urine Glucose (UA) 4+ H (Negative) Urine Ketones Negative (Negative) Urine Blood Negative (Negative) Urine Nitrite Negative (Negative) Urine Bilirubin Negative (Negative) Urine Urobilinogen <2.0 (<2.0) mg/dL Ur Leukocyte Esterase Negative (Negative) Urine RBC <1 (0-5) /hpf Urine WBC 1 (0-5) /hpf Urine Bacteria Rare H (None) /hpf Urine Mucus Rare H (None) /hpf Disposition Clinical Impression: Blood glucose elevated Disposition: HOME SELF-CARE Condition: Good Instructions: Type 2 Diabetes in Adults (ED) Additional Instructions: Please follow-up with family doctor in the next 2 days. Please return to emergency room if the symptoms increase or worsen or for any other concerns. Is patient prescribed a controlled substance at d/c from ED?: No Referrals: Rafi Hawk MD [Primary Care Provider] - 1-2 days Time of Disposition: 18:49
[2018-03-15 18:07] LABS: Appearance,Urine Clear (Clear); Bacteria,Urine Rare /hpf; Bilirubin,Urine Negative (Negative); Blood,Urine Negative (Negative); Color,Urine Yellow; Glucose,Urine (UA) 4+ (Negative); Ketones,Urine Negative (Negative); Leukocyte Esterase,Urine Negative (Negative); Mucus,Urine Rare /hpf; Nitrite,Urine Negative (Negative); Protein,Urine 2+ (Negative); RBC,Urine <1 /hpf (0-5); Specific Gravity,Urine 1.019 (1.001-1.035); Urobilinogen,Urine <2.0 mg/dL (<2.0); WBC,Urine 1 /hpf (0-5)
[2018-03-15 18:47] VITALS: BP 158/70; PULSE 94; RESP 18; TEMP 97.2
[2018-03-15 18:47] LABS: Glucose,Whole Blood 269 mg/dL (75-99)
== END 2018-03-15 19:03 | disposition home or self-care (01) ==
LOC: EC 17:13
DX: E11.65 Type 2 diabetes mellitus with hyperglycemia (principal); E78.5 Hyperlipidemia, unspecified; I10 Essential (primary) hypertension; Z87.891 Personal history of nicotine dependence; Z79.84 Long term (current) use of oral hypoglycemic drugs; Z79.899 Other long term (current) drug therapy
CPT/HCPCS: 36415; 81001; 99283

== ENCOUNTER → 2018-05-02 | Outpatient (CLI) | payer MEDICARE ==
[2018-05-02 13:01] VITALS: BP 188/79; PULSE 67; RESP 16; TEMP 98.2
--- NOTE | 2018-05-02 14:50 | P.PAINPG ---
Subjective Progress Note Date: 05/02/18 This is follow-up visit for this patient with a history of severe and chronic low back pain secondary to, lumbar spondylosis with facet arthropathy, and right iliolumbar ligament neuralgia We have done an interventional pain procedure radiofrequency ablation of the medial branch lumbar area, and right iliolumbar ligament steroid injection, he reported that he continued to have severe right-sided low back pain, he denies any motor or sensory deficit The patient currently on Motrin 400 mg when necessary Patient denies any side effect of the medication , patient denies any excessive drowsiness or sleepiness, patient denies any suicidal ideation, Patient reported that the current medication is helping to control the pain and improve the activity of daily livings, Patient denies any motor or sensory deficit, denies any change in the bowel movement or urination, patient denies any fever or night sweats.l Objective - Vital Signs Vital signs: Vital Signs Temp 98.2 F 05/02/18 12:57 Pulse 67 05/02/18 12:57 Resp 16 05/02/18 12:57 BP 188/79 05/02/18 12:57 Pulse Ox 95 05/02/18 12:57 Intake & Output 05/01/18 05/02/18 05/02/18 18:59 06:59 18:59 Weight 83.915 kg - Constitutional Constitutional Comment(s): Physical Examinations : 1-Constitutiona : Cooperative , not in acute distress . 2-HEENT : nech ; supple , no Lymphadenopathy , normal thyroid size . eyes : no ptosis , no icterus , no photophobia . ENT : normal of hearing , normal oropharynx , no Thrush . 3- Respiratory : Chest clear to auscultations Bilaterally , no wheezing , no Rhonchi . 4- Cardiovascular : regular rate and rhythem , S1 , S2 , no S3 , no S4. 5- Gastrointestinal : abdomen soft no tenderness , bowel sounds , no organomegally . 6- Genitourinary : Defferred . 7- neurologic : Cranial nerve II to XII intact , no focal neurological deffecit . 8-psychatric : alert , oriented X 3 , appropriate affect , intact judgment and insight . 9-Lymphatic : no Lymphadenopathy . 10- musculoskeltal : Lumber spine moter stegnth lower extremities ,thigh and legs 5/5 Right side , 5/5 Left side deep tendon reflexes : normal Knee Jerk , normal ankle Jerk positive lumber facet Loading Test Sever tenderness over the right iliolumbar ligament Abduction and adductions of the right hip associated with some pain Assessment and Plan Plan: Assessment and plan= chronic low back pain secondary to, lumbar spondylosis with lumbar facet arthropathy . Right iliolumbar ligament neuralgia Status post radiofrequency ablation of the medial branch lumbar area. Patient could benefit from repeat right-sided iliolumbar ligament steroid injections. Procedure risk and benefit and alternatives discussed with the patient, he agreed with the preceding PQRS Measure Charge Sheet Measure #130: Documentation of Current Meds in Medical Chart: Patient's medications documented in chart Measure #226: Tobacco Use: Screen & Cessation Intervention: Pt not a tobacco user Measure #111: Pneumonia Vaccination: Pneumococcal vaccine administered or previously received Measure #47: Advance Care Plan: Advance care planning discussed & documented, pt chose/unable to give Measure #412: Opioid Treatment Agreement: No documentation of signed opioid treatment agreement Measure #408: Opioid Therapy Follow-up Evaluation: Patient had NO f/u eval minimum every 3 months during opioid therapy Measure #317: Preventitive Care & Scrn High Bld Press & F/U: Pre-hypertensive or hypertensive BP documented, pt will f/u with PCP Measure #128: Body Mass Index (BMI) Screening & Follow-up: BMI documented ABOVE normal parameters - f/u documented Measure #131: Pain Assessment & Follow-up: Pain positive & plan documented, Follow-up scheduled Measure #431: Unhealthy Alcohol Use Preventative Care & Scrn: Patient not identified as an unhealthy alcohol user PQRS Narrative: Smoking Status Former smoker Do You Want the Pneumonia Vaccine Up to Date Vaccine AT THIS TIME? Blood Pressure 188/79 Pain Intensity [Lower Back] 4 Scale Used Numeric (1 - 10) Hx Alcohol Use (MH) Yes: less than 7 qweek Home Medications: Ambulatory Orders Repaglinide [Prandin] 0.5 mg PO BID 08/26/17 Rosuvastatin [Crestor] 10 mg PO DAILY 08/26/17 metFORMIN HCL [Glucophage] 500 mg PO BID 08/26/17 sitaGLIPtin [Januvia] 50 mg PO DAILY 08/26/17 Quinapril HCl [Accupril] 5 mg PO DAILY 09/27/17 Acetaminophen [Tylenol] 500 mg PO DAILY PRN 10/25/17 Lidocaine 5% Patch [Lidoderm] 1 patch TOPICAL Q12H PRN 02/04/18 Ibuprofen [Motrin Ib] 400 mg PO DAILY PRN 05/02/18 Controlled Substance Measures - Controlled Substance Measures Is patient prescribed a controlled substance at discharge?: No When asked, does pt state using other controlled substances?: No If prescribed controlled substance>3 days was MAPS reviewed?: No If Rx opioid, was Start Talking consent form obtained?: No If opioid is for acute pain is fill amount 7 days or less?: No Was information provided regarding opioid addiction?: No
== END | disposition home or self-care (01) ==
LOC: PNWHC3 12:26
PROVIDERS: ATTEND Specialist
DX: G89.29 Other chronic pain (principal); M54.5 Low back pain; M47.816 Spondylosis without myelopathy or radiculopathy, lumbar region; M79.2 Neuralgia and neuritis, unspecified; M46.86 Other specified inflammatory spondylopathies, lumbar region; Z79.1 Long term (current) use of non-steroidal anti-inflammatories (NSAID); Z87.891 Personal history of nicotine dependence; Z79.899 Other long term (current) drug therapy
CPT/HCPCS: 99211

== ENCOUNTER → 2018-06-15 | Outpatient (CLI) | payer MEDICARE ==
[2018-06-15 08:39] LABS: Calcium 9.4 mg/dL (8.4-10.2); Potassium 5.1 mmol/L (3.5-5.1); Total Bilirubin 0.5 mg/dL (0.2-1.3); Total Protein 6.9 g/dL (6.3-8.2)
[2018-06-15 17:47] LABS: Hemoglobin A1C 8.4 % (4.0-6.0)
== END ==
LOC: LABWHC1 06:57
PROVIDERS: ATTEND Internal Medicine Endocrinology, Diabetes & Metabolism
DX: E11.65 Type 2 diabetes mellitus with hyperglycemia (principal); E78.2 Mixed hyperlipidemia; I10 Essential (primary) hypertension
CPT/HCPCS: 36415; 80053; 80061; 82306; 83036

== ENCOUNTER → 2018-10-17 | Outpatient (CLI) | payer MEDICARE ==
[2018-10-17 11:18] LABS: Albumin 4.2 g/dL (3.80-4.90); Albumin/Globulin Ratio 1.91 (1.60-3.17); Anion Gap 9.8 mmol/L (4.00-12.00); Calcium 9.4 mg/dL (8.7-10.3); Carbon Dioxide 25.2 mmol/L (21.6-31.8); Globulin 2.2 g/dL (1.6-3.3); LDL Cholesterol,Calculated 50.2 mg/dL (0.0-131.0); Potassium 4.6 mmol/L (3.5-5.5); Total Bilirubin 0.4 mg/dL (0.2-1.2); Total Protein 6.4 g/dL (6.2-8.2); VLDL Calculation 53.8 mg/dL (5.00-40.00)
[2018-10-17 12:16] LABS: Hemoglobin A1C 8.8 % (4.0-6.0)
== END | disposition home or self-care (01) ==
LOC: LABWHC1 06:45
PROVIDERS: ATTEND Internal Medicine Endocrinology, Diabetes & Metabolism
DX: E11.65 Type 2 diabetes mellitus with hyperglycemia (principal); E78.2 Mixed hyperlipidemia; I10 Essential (primary) hypertension; M54.5 Low back pain; E55.9 Vitamin D deficiency, unspecified
CPT/HCPCS: 36415; 80053; 80061; 82306; 83036

== ENCOUNTER 2018-10-19 06:24 | Day surgery (SDC) | payer MEDICARE ==
[2018-10-17 16:11] VITALS: BMI 29.2
[~2018-10-19 06:24] MED LIST changes: -LACTATED RINGERS 1,000 ML IV SCH; +SODIUM CHLORIDE 0.9% 500 ML 500 ML IV SCH
[2018-10-19 07:16] VITALS: RESP 18; TEMP 97.8
[2018-10-19] MEDS ORDERED: LACTATED RINGERS 1,000 ML IV ONE (07:16)
[2018-10-19] MEDS ORDERED: LIDOCAINE 1% 20 ML VIAL (10MG/ML) FOR IV START INTRADERMA ONE (07:16)
[2018-10-19 07:26] LABS: Glucose,Whole Blood 179 mg/dL (75-99)
[2018-10-19] MEDS ORDERED: IV FLUID CONTINUATION 1,000 ML IV ONE (07:54)
[2018-10-19 08:10] VITALS: BP 160/88; PULSE 69
--- NOTE | 2018-10-19 08:15 | P.PCN ---
Date of Procedure: 10/19/18 Procedure(s) Performed: PREOPERATIVE DIAGNOSIS: 1- Lumbar Degenerative Disc Diseases 2-Lumbar spondylosis with Facet arthropathy without myelopathy 3-right iliolumbar ligament neuralgia. POSTOPERATIVE DIAGNOSIS: 1-Lumber Degenerative Disc Diseases 2-Lumbar spondylosis with Facet arthropathy without myelopathy. 3-right iliolumbar ligament neuralgia. History of lumbar spinal surgery. PROCEDURE 1. Lumbar epidural steroid injection under fluoroscopic guidance at the L5-S1 level. 2. Lumbar epidurogram. 3-right iliolumbar ligament steroid injection under fluoroscopy guidance. ANESTHESIA: Local with 1% lidocaine 3 ml and , moderate sedation with intravenous Versed 1 mg ,and fentanyle 100 Mcg EBL: Minimal PROCEDURE INDICATION: The patient with low back pain and radiculitis symptoms unresponsive to conservative treatment. Fluoroscopy was used to optimize visualization of the needle placement and to maximize safety. PROCEDURE DESCRIPTION / TECHNIQUE: The patient was seen and identified in the preoperative area. Risks, benefits , complications including but not limited to infections ,bleeding ,allergic reaction to the medications ,nerve damage and not complete pain releife , and alternatives were discussed with the patient. The patient agreed to proceed with the procedure and signed the consent. IV was started, and vital signs were stable. Patient was taken to the OR and time out was completed. The patient was placed in the prone position on procedure table and a pillow was placed under the abdomen to reduce lumbar lordosis. The lumbosacral area was prepped and draped in the usual sterile fashion.ere closely monitored during the procedure. Conscious sedation was used during the procedure to decrease patients anxiety. Vital signs was monitered during the entire procedure. Using anterior-posterior fluoroscopy, the L5-S1 interlaminar space was identified and the skin over this site was marked and then infiltrated with 1% lidocaine subcutaneously. Subsequently, a 20-gauge Tuohy epidural needle was inserted and advanced toward the epidural space using the ``Loss of resistance technique and guided by AP and lateral fluoroscopy. The correct needle position in the epidural space was verified with the injection of 2 mL of the water soluble contrast dye Isovue 200 contrast and observing an excellent epidurogram with the epidural spread of the dye, after negative aspiration for blood and CSF and in the absence of paresthesias. Again after negative aspiration, a 6 ml mixture containing 40 mg of Depo-medrol , and 2 ml of preservative free Normal Saline, and 2 ml of preservative free lidocaine 1% solution was injected and a washout of epidurogram was seen. Needle was withdrawn intact. And to do the right iliolumbar ligament local infiltration of the skin and subcutaneous tissue with lidocaine 1% 2 mL, then 22-gauge Quincke Needle advanced slowly under fluoroscopy and placed at the middle of the area between the right L5 transverse process and the sacral stephanie on the right side, needle advanced slowly under fluoroscopy and the needle placement confirmed with AP and lateral view, and after appropriate needle placement confirmed ropivacaine 0.5% 4 mL mixed with a 20 mg of Depo-Medrol were injected after negative aspiration, patient tolerated the procedure well without any complications COMPLICATIONS: None DISPOSITION / PLANS: The patient was placed in a supine position and transferred to the recovery area in a stable condition for observation. There was no evidence of lower extremity motor or sensory deficit after the procedure. Patient was discharged from the recovery room after meeting discharge criteria. Home discharge instructions were given to the patient by the staff. The patient was reexamined prior to discharge. The patient will schedule a follow up in the clinic in 2-4 weeks.
--- NOTE | 2018-10-19 09:43 | FL ---
Fluoroscopy HISTORY: Pain 8 seconds fluoroscopy time supplied to the referring clinician. 3 intraoperative C-arm images docume nt the procedure. See dictated report from anesthesia.
== END 2018-10-19 08:26 | disposition home or self-care (01) ==
LOC: ORPAIN 06:24
PROVIDERS: ATTEND Specialist
DX: M51.36 Other intervertebral disc degeneration, lumbar region (principal); M47.816 Spondylosis without myelopathy or radiculopathy, lumbar region; G58.8 Other specified mononeuropathies; I10 Essential (primary) hypertension; E11.9 Type 2 diabetes mellitus without complications
CPT/HCPCS: 62323; 20550; J2250; J1030; J3010; Q9966; 99152

== ENCOUNTER 2018-11-02 06:49 | Day surgery (SDC) | payer MEDICARE ==
[2018-11-01 08:52] VITALS: BMI 29.3
[2018-11-02] MEDS ORDERED: SODIUM CHLORIDE 0.9% 500 ML 500 ML IV SCH (07:00)
[2018-11-02 07:05] VITALS: RESP 18; TEMP 97.8
[2018-11-02] MEDS ORDERED: LIDOCAINE 1% 20 ML VIAL (10MG/ML) FOR IV START INTRADERMA ONE (07:05)
[2018-11-02] MEDS ORDERED: LACTATED RINGERS 1,000 ML IV ONE (07:05)
[2018-11-02 07:15] LABS: Glucose,Whole Blood 173 mg/dL (75-99)
--- NOTE | 2018-11-02 08:20 | P.PCN ---
Date of Procedure: 11/02/18 Procedure(s) Performed: PREOPERATIVE DIAGNOSIS: 1- Lumbar Degenerative Disc Diseases 2-Lumbar spondylosis with Facet arthropathy without myelopathy 3-right iliolumbar ligament neuralgia. POSTOPERATIVE DIAGNOSIS: 1-Lumber Degenerative Disc Diseases 2-Lumbar spondylosis with Facet arthropathy without myelopathy. 3-right iliolumbar ligament neuralgia. History of lumbar spinal surgery. PROCEDURE 1. Lumbar epidural steroid injection under fluoroscopic guidance at the L5-S1 level. ( #2 ) 2. Lumbar epidurogram. 3-right iliolumbar ligament steroid injection under fluoroscopy guidance. ANESTHESIA: Local with 1% lidocaine 3 ml and , moderate sedation with intravenous Versed 1 mg ,and fentanyle 100 Mcg EBL: Minimal PROCEDURE INDICATION: The patient with low back pain and radiculitis symptoms unresponsive to conservative treatment. Fluoroscopy was used to optimize visualization of the needle placement and to maximize safety. PROCEDURE DESCRIPTION / TECHNIQUE: The patient was seen and identified in the preoperative area. Risks, benefits , complications including but not limited to infections ,bleeding ,allergic reaction to the medications ,nerve damage and not complete pain releife , and alternatives were discussed with the patient. The patient agreed to proceed with the procedure and signed the consent. IV was started, and vital signs were stable. Patient was taken to the OR and time out was completed. The patient was placed in the prone position on procedure table and a pillow was placed under the abdomen to reduce lumbar lordosis. The lumbosacral area was prepped and draped in the usual sterile fashion.ere closely monitored during the procedure. Conscious sedation was used during the procedure to decrease patients anxiety. Vital signs was monitered during the entire procedure. Using anterior-posterior fluoroscopy, the L5-S1 interlaminar space was identified and the skin over this site was marked and then infiltrated with 1% lidocaine subcutaneously. Subsequently, a 20-gauge Tuohy epidural needle was inserted and advanced toward the epidural space using the ``Loss of resistance technique and guided by AP and lateral fluoroscopy. The correct needle position in the epidural space was verified with the injection of 2 mL of the water soluble contrast dye Isovue 200 contrast and observing an excellent epidurogram with the epidural spread of the dye, after negative aspiration for blood and CSF and in the absence of paresthesias. Again after negative aspiration, a 6 ml mixture containing 40 mg of Depo-medrol , and 2 ml of preservative free Normal Saline, and 2 ml of preservative free lidocaine 1% solution was injected and a washout of epidurogram was seen. Needle was withdrawn intact. And to do the right iliolumbar ligament local infiltration of the skin and subcutaneous tissue with lidocaine 1% 2 mL, then 22-gauge Quincke Needle advanced slowly under fluoroscopy and placed at the middle of the area between the right L5 transverse process and the sacral stephanie on the right side, needle advanced slowly under fluoroscopy and the needle placement confirmed with AP and lateral view, and after appropriate needle placement confirmed ropivacaine 0.5% 4 mL mixed with a 20 mg of Depo-Medrol were injected after negative aspiration, patient tolerated the procedure well without any complications COMPLICATIONS: None DISPOSITION / PLANS: The patient was placed in a supine position and transferred to the recovery area in a stable condition for observation. There was no evidence of lower extremity motor or sensory deficit after the procedure. Patient was discharged from the recovery room after meeting discharge criteria. Home discharge instructions were given to the patient by the staff. The patient was reexamined prior to discharge. The patient will schedule a follow up in the clinic in 2-4 weeks.
[2018-11-02] MEDS ORDERED: IV FLUID CONTINUATION 1,000 ML IV ONE (08:26)
[2018-11-02 08:45] VITALS: BP 184/78; PULSE 65
--- NOTE | 2018-11-02 10:12 | FL ---
Fluoroscopy HISTORY: Pain 2 seconds fluoroscopy time supplied to the referring clinician. 2 intraoperative C-arm images docume nt the procedure. See dictated report from anesthesia.
== END 2018-11-02 09:02 | disposition home or self-care (01) ==
LOC: ORPAIN 06:49
PROVIDERS: ATTEND Specialist
DX: M51.36 Other intervertebral disc degeneration, lumbar region (principal); M47.816 Spondylosis without myelopathy or radiculopathy, lumbar region; G58.8 Other specified mononeuropathies; M54.10 Radiculopathy, site unspecified; I10 Essential (primary) hypertension
CPT/HCPCS: 62323; 20550; J2250; J3301; J3010; Q9966

== ENCOUNTER → 2019-04-12 | Outpatient (CLI) | payer MEDICARE ==
[2019-04-12 07:33] LABS: Potassium 5.3 mmol/L (3.5-5.1)
[2019-04-12 07:42] LABS: HCT 44.9 % (39.0-53.0); HGB 14.6 gm/dL (13.0-17.5); MCH 30.1 pg (25.0-35.0); MCHC 32.6 g/dL (31.0-37.0); MCV 92.2 fL (80.0-100.0); Mean Platelet Volume 7.7; Platelet Count 209 k/uL (150-450); RBC 4.87 m/uL (4.30-5.90); RDW 15.1 % (11.5-15.5); WBC 6.2 k/uL (3.8-10.6)
== END | disposition home or self-care (01) ==
LOC: LABPAT 06:34
PROVIDERS: ATTEND Internal Medicine Interventional Cardiology
DX: Z01.812 Encounter for preprocedural laboratory examination (principal); I35.0 Nonrheumatic aortic (valve) stenosis; R06.02 Shortness of breath
CPT/HCPCS: 36415; 80051; 82565; 84520; 85027

== ENCOUNTER → 2019-04-17 | Day surgery (SDC) | payer MEDICARE ==
[2019-04-12 13:51] VITALS: BMI 29.7
[~2019-04-17] MED LIST changes: +ALPRAZolam 0.25 MG TAB PO PRN; +ALPRAZolam 0.5 MG TAB PO PRN; +ASPIRIN 325 MG TAB PO STA; +ATORVASTATIN 80 MG TAB PO STA; +NITROGLYCERIN SL TABS 0.4 MG TAB SUBLINGUAL PRN; +SODIUM CHLORIDE 0.9% 1,000 ML in EMPTY BAG 1 BAG IV ONE; -SODIUM CHLORIDE 0.9% 500 ML 500 ML IV SCH
== END ==
LOC: CATHCVL 06:09
PROVIDERS: ATTEND Internal Medicine Interventional Cardiology
DX: R06.02 Shortness of breath (principal); I35.0 Nonrheumatic aortic (valve) stenosis; Z53.21 Procedure and treatment not carried out due to patient leaving prior to being seen by health care provider

== ENCOUNTER → 2020-04-11 | Outpatient (CLI) | payer MEDICARE ==
[2020-04-11 17:39] LABS: Hemoglobin A1C 8.1 % (4.0-6.0)
[2020-04-11 17:44] LABS: African American GFR (CKD) 40.3 (60.0-200.0); Anion Gap 10.1 mmol/L (4.00-12.00); BUN/Creat Ratio 15.56 Ratio (12.00-20.00); Calcium 9.6 mg/dL (8.7-10.3); Carbon Dioxide 22.9 mmol/L (21.6-31.8); Chol/HDL Ratio 2.33; LDL Cholesterol,Calculated 23.6 mg/dL (0.0-131.0); Non-African American GFR(CKD) 34.8 (60.0-200.0); Potassium 4.8 mmol/L (3.5-5.5); VLDL Calculation 32.4 mg/dL (5.00-40.00)
[2020-04-11 18:39] LABS: Urine Creatinine 129.2 mg/dL
== END | disposition home or self-care (01) ==
LOC: LABWHC1 07:00
PROVIDERS: ATTEND Internal Medicine
DX: E11.65 Type 2 diabetes mellitus with hyperglycemia (principal); E55.9 Vitamin D deficiency, unspecified
CPT/HCPCS: 36415; 80048; 80061; 82043; 82306; 82570; 83036

== ENCOUNTER → 2020-04-26 | Outpatient (CLI) | payer MEDICARE | END | disposition home or self-care (01) | LOC: LABWHC1 14:09 | PROVIDERS: ATTEND Internal Medicine | DX: Z20.828 Contact with and (suspected) exposure to other viral communicable diseases (principal) | CPT/HCPCS: U0003; C9803 ==

== ENCOUNTER 2020-07-24 10:51 | Emergency (ER) | payer MEDICARE ==
--- NOTE | 2020-07-24 11:27 | ED ---
Abdominal Pain HPI - General Chief Complaint: Abdominal Pain Stated Complaint: abd pain Time Seen by Provider: 07/24/20 11:01 Source: patient Mode of arrival: ambulatory Limitations: no limitations - History of Present Illness Initial Comments: 80-year-old male presenting today for chief complaint of left lower quadrant abdominal pain that began yesterday evening. Patient states he does have history of kidney stones B does not think that this feels similar he states developed left lower quadrant pain yesterday night while laying down. Patient states that it is an aching throbbing pain and at times sharp. Patient denies any urinary changes hematuria dysuria urgency or frequency. He denies any nausea vomiting diarrhea or known history of diverticulitis. Patient denies fevers chills general malaise. He denies chest pain shortness of breath or leg pain. Patient denies any radiation to the back. Review of systems negative upon arrival patient appears nontoxic in no acute distress--here is elevation of blood pressure otherwise vitals within acceptable limits. - Related Data Home Medications Medication Instructions Recorded Confirmed Repaglinide [Prandin] 1 mg PO QAM 08/26/17 07/24/20 Glimepiride [Amaryl] 2 mg PO DAILY 04/12/19 07/24/20 Pioglitazone [Actos] 30 mg PO DAILY 04/12/19 07/24/20 Repaglinide [Prandin] 0.5 mg PO HS 04/12/19 07/24/20 Aspirin EC [Ecotrin Low Dose] 81 mg PO DAILY 07/24/20 07/24/20 Glimepiride [Amaryl] 1 mg PO HS 07/24/20 07/24/20 Lidocaine 5% Patch [Lidoderm] 1 patch TOPICAL DAILY PRN 07/24/20 07/24/20 Rosuvastatin Calcium [Crestor] 40 mg PO HS 07/24/20 07/24/20 lisinopriL [Zestril] 20 mg PO DAILY 07/24/20 07/24/20 metFORMIN HCL [Glucophage] 500 mg PO BID 07/24/20 07/24/20 sitaGLIPtin [Januvia] 50 mg PO DAILY 07/24/20 07/24/20 Previous Rx's Medication Instructions Recorded Cephalexin [Keflex] 500 mg PO Q6HR 7 Days #28 cap 07/24/20 Allergies Allergy/AdvReac Type Severity Reaction Status Date / Time No Known Allergies Allergy Verified 07/24/20 12:15 Review of Systems ROS Statement: Those systems with pertinent positive or pertinent negative responses have been documented in the HPI. ROS Other: All systems not noted in ROS Statement are negative. Past Medical History Past Medical History: Diabetes Mellitus, Hyperlipidemia, Hypertension Additional Past Medical History / Comment(s): 2004 staph infection in the spine, chronic back pain, History of Any Multi-Drug Resistant Organisms: None Reported Additional Past Surgical History / Comment(s): hemorrhoidectomy, removal of encapsulated pocket of infection from spine, pain procedures, aortic valve replacement Past Anesthesia/Blood Transfusion Reactions: No Reported Reaction Past Psychological History: No Psychological Hx Reported Smoking Status: Never smoker Past Alcohol Use History: Occasional Past Drug Use History: None Reported - Past Family History Mother Family Medical History: Cancer Additional Family Medical History / Comment(s): UTERINE CANCER Brother(s) Family Medical History: Cancer Additional Family Medical History / Comment(s): COLON CANCER Father Family Medical History: Cancer Son(s) Family Medical History: Cancer General Exam - General Exam Comments Initial Comments: General: The patient is awake and alert, in no distress Eye: +3 mm pupils are equal, round and reactive to light, extra-ocular movements are intact. No nystagmus. There is normal conjunctiva bilaterally. No signs of icterus. Ears, nose, mouth and throat: There are moist mucous membranes and no oral lesions. Neck: The neck is supple, there is no tenderness or JVD. Cardiovascular: There is a regular rate and rhythm. No murmur, rub or gallop is appreciated. Respiratory: Lungs are clear to auscultation, respirations are non-labored, breath sounds are equal. No wheezes, stridor, rales, or rhonchi. Gastrointestinal: Soft, non-distended, LLQ pain to palpation, abdomen without masses or organomegaly noted. There is no rebound or guarding present. Musculoskeletal: Normal ROM, no tenderness. Strength 5/5. Sensation intact. Radial pulses equal bilaterally 2+. Neurological: A&O x 3. CN II-XII intact, There are no obvious motor or sensory deficits. Coordination appears grossly intact. Speech is normal. Skin: Skin is warm and dry and no rashes or lesions are noted. Psychiatric: Cooperative, appropriate mood & affect, normal judgment. Limitations: no limitations Course Vital Signs 07/24/20 07/24/20 07/24/20 10:54 13:00 14:07 Temperature 98.3 F 98.5 F 98.2 F Pulse Rate 76 73 75 Respiratory 16 20 20 Rate Blood Pressure 172/72 168/75 170/82 O2 Sat by Pulse 98 98 98 Oximetry Medical Decision Making - Medical Decision Making CT 3mm stone. Patient pain controlled. discussed case wtih Dr. Smith who recommended outpatient urology f/u, antibiotics and return for increasing pain or fevers. patietn agreeable and discharged appearing well. - Lab Data Result diagrams: 07/24/20 11:48 07/24/20 11:48 Lab Results 07/24/20 07/24/20 07/24/20 Range/Units 11:48 11:48 11:48 WBC 11.4 H (3.8-10.6) k/uL RBC 4.54 (4.30-5.90) m/uL Hgb 13.9 (13.0-17.5) gm/dL Hct 42.1 (39.0-53.0) % MCV 92.8 (80.0-100.0) fL MCH 30.7 (25.0-35.0) pg MCHC 33.1 (31.0-37.0) g/dL RDW 13.5 (11.5-15.5) % Plt Count 175 (150-450) k/uL MPV 7.7 Neutrophils % 84 % Lymphocytes % 8 % Monocytes % 6 % Eosinophils % 2 % Basophils % 0 % Neutrophils # 9.6 H (1.3-7.7) k/uL Lymphocytes # 0.9 L (1.0-4.8) k/uL Monocytes # 0.6 (0-1.0) k/uL Eosinophils # 0.2 (0-0.7) k/uL Basophils # 0.0 (0-0.2) k/uL Sodium 138 (137-145) mmol/L Potassium 5.4 H (3.5-5.1) mmol/L Chloride 105 (98-107) mmol/L Carbon Dioxide 25 (22-30) mmol/L Anion Gap 8 mmol/L BUN 19 (9-20) mg/dL Creatinine 1.68 H (0.66-1.25) mg/dL Est GFR (CKD-EPI)AfAm 44 (>60 ml/min/1.73 sqM) Est GFR (CKD-EPI)NonAf 38 (>60 ml/min/1.73 sqM) Glucose 226 H (74-99) mg/dL Plasma Lactic Acid [place] (0.7-2.0) mmol/L Calcium 9.7 (8.4-10.2) mg/dL Total Bilirubin 0.5 (0.2-1.3) mg/dL AST 30 (17-59) U/L ALT 27 (4-49) U/L Alkaline Phosphatase 58 (38-126) U/L Total Protein 7.9 (6.3-8.2) g/dL Albumin 4.7 (3.5-5.0) g/dL Amylase 94 (30-110) U/L Lipase 490 H (23-300) U/L Urine Color Yellow Urine Appearance Clear (Clear) Urine pH 6.0 (5.0-8.0) Ur Specific [place] 1.022 (1.001-1.035) Urine Protein 2+ H (Negative) Urine Glucose (UA) Trace H (Negative) Urine Ketones Negative (Negative) Urine Blood Moderate H (Negative) Urine Nitrite Negative (Negative) Urine Bilirubin Negative (Negative) Urine Urobilinogen <2.0 (<2.0) mg/dL Ur Leukocyte Esterase Moderate H (Negative) Urine RBC 34 H (0-5) /hpf Urine WBC 4 (0-5) /hpf Ur Squamous Epith Cells <1 (0-4) /hpf Urine Bacteria Rare H (None) /hpf Urine Mucus Rare H (None) /hpf 07/24/20 Range/Units 11:48 WBC (3.8-10.6) k/uL RBC (4.30-5.90) m/uL Hgb (13.0-17.5) gm/dL Hct (39.0-53.0) % MCV (80.0-100.0) fL MCH (25.0-35.0) pg MCHC (31.0-37.0) g/dL RDW (11.5-15.5) % Plt Count (150-450) k/uL MPV Neutrophils % % Lymphocytes % % Monocytes % % Eosinophils % % Basophils % % Neutrophils # (1.3-7.7) k/uL Lymphocytes # (1.0-4.8) k/uL Monocytes # (0-1.0) k/uL Eosinophils # (0-0.7) k/uL Basophils # (0-0.2) k/uL Sodium (137-145) mmol/L Potassium (3.5-5.1) mmol/L Chloride (98-107) mmol/L Carbon Dioxide (22-30) mmol/L Anion Gap mmol/L BUN (9-20) mg/dL Creatinine (0.66-1.25) mg/dL Est GFR (CKD-EPI)AfAm (>60 ml/min/1.73 sqM) Est GFR (CKD-EPI)NonAf (>60 ml/min/1.73 sqM) Glucose (74-99) mg/dL Plasma Lactic Acid [place] 2.0 (0.7-2.0) mmol/L Calcium (8.4-10.2) mg/dL Total Bilirubin (0.2-1.3) mg/dL AST (17-59) U/L ALT (4-49) U/L Alkaline Phosphatase (38-126) U/L Total Protein (6.3-8.2) g/dL Albumin (3.5-5.0) g/dL Amylase (30-110) U/L Lipase (23-300) U/L Urine Color Urine Appearance (Clear) Urine pH (5.0-8.0) Ur Specific [place] (1.001-1.035) Urine Protein (Negative) Urine Glucose (UA) (Negative) Urine Ketones (Negative) Urine Blood (Negative) Urine Nitrite (Negative) Urine Bilirubin (Negative) Urine Urobilinogen (<2.0) mg/dL Ur Leukocyte Esterase (Negative) Urine RBC (0-5) /hpf Urine WBC (0-5) /hpf Ur Squamous Epith Cells (0-4) /hpf Urine Bacteria (None) /hpf Urine Mucus (None) /hpf Disposition Clinical Impression: Renal calculus, Left flank pain Disposition: HOME SELF-CARE Condition: Good Instructions (If sedation given, give patient instructions): Kidney Stones (ED) Additional Instructions: Please use medication as discussed. Please follow-up with urology in the next week. Please return to emergency room if the symptoms increase or worsen or for any other concerns. Prescriptions: Cephalexin [Keflex] 500 mg PO Q6HR 7 Days #28 cap Is patient prescribed a controlled substance at d/c from ED?: No Referrals: Danyell Park MD [Primary Care Provider] - 1-2 days Carlos Jacinto MD [STAFF PHYSICIAN] - 1-2 days Time of Disposition: 13:42
[2020-07-24 12:15] LABS: Basophils % (A) 0 %; Eosinophils # (A) 0.2 k/uL (0-0.7); Eosinophils % (A) 2 %; HCT 42.1 % (39.0-53.0); HGB 13.9 gm/dL (13.0-17.5); Lymphocytes # (A) 0.9 k/uL (1.0-4.8); Lymphocytes % (A) 8 %; MCH 30.7 pg (25.0-35.0); MCHC 33.1 g/dL (31.0-37.0); MCV 92.8 fL (80.0-100.0); Mean Platelet Volume 7.7; Monocytes # (A) 0.6 k/uL (0-1.0); Monocytes % (A) 6 %; Neutrophils # (A) 9.6 k/uL (1.3-7.7); Neutrophils % (A) 84 %; Platelet Count 175 k/uL (150-450); RBC 4.54 m/uL (4.30-5.90); RDW 13.5 % (11.5-15.5); WBC 11.4 k/uL (3.8-10.6)
[2020-07-24 12:30] LABS: Appearance,Urine Clear (Clear); Bacteria,Urine Rare /hpf; Bilirubin,Urine Negative (Negative); Blood,Urine Moderate (Negative); Color,Urine Yellow; Glucose,Urine (UA) Trace (Negative); Ketones,Urine Negative (Negative); Leukocyte Esterase,Urine Moderate (Negative); Mucus,Urine Rare /hpf; Nitrite,Urine Negative (Negative); Protein,Urine 2+ (Negative); RBC,Urine 34 /hpf (0-5); Specific Gravity,Urine 1.022 (1.001-1.035); Squamous Epithelial Cell,Urine <1 /hpf (0-4); Urobilinogen,Urine <2.0 mg/dL (<2.0); WBC,Urine 4 /hpf (0-5)
[2020-07-24 12:31] LABS: Albumin 4.7 g/dL (3.5-5.0); Calcium 9.7 mg/dL (8.4-10.2); Potassium 5.4 mmol/L (3.5-5.1); Total Bilirubin 0.5 mg/dL (0.2-1.3); Total Protein 7.9 g/dL (6.3-8.2)
--- NOTE | 2020-07-24 13:36 | CT ---
EXAMINATION TYPE: CT abdomen pelvis wo con DATE OF EXAM: 07/24/2020 COMPARISON: None HISTORY: LLQ pain CT DLP: 655.9 mGycm Examination of the solid and hollow viscera is limited given the lack of contrast. FINDINGS: LUNG BASES: No evidence for nodule. No evidence for infiltrate. LIVER/GB: There is evidence of cholelithiasis. No space-occupying hepatic lesion. PANCREAS: No pancreatic mass identified. No inflammatory process seen. SPLEEN: No evidence for splenomegaly. No intrasplenic lesions seen. Splenic granulomas noted. ADRENALS: No adrenal nodules identified. No evidence for thickening. KIDNEYS: 3 mm calculus just distal to the left UPJ resulting in mild left-sided hydronephrosis. There is perirenal stranding noted. Additional nonobstructing calculi are seen bilaterally. Noted bilatera lly are hypoattenuating and hyperattenuating renal lesions felt to reflect simple cysts as well as he morrhagic cyst. BOWEL: Appendix has a normal appearance. No evidence of bowel obstruction. No inflammatory process. Lymph nodes: No evidence for adenopathy greater than 1 cm. Abdominal aorta: Atheromatous changes seen. No evidence for aneurysm. Genital organs: No significant abnormality. Other: No significant abnormality. IMPRESSION: 3 mm calculus just distal to the left UPJ resulting in mild left-sided hydronephrosis. There is perir enal stranding noted.
[2020-07-24] MEDS ORDERED: KETOROLAC 15 MG/ML 1 ML VIAL IVP STA (13:37)
[2020-07-24] MEDS ORDERED: cefTRIAXone IN SWFI 1,000 MG/10 ML SYRINGE IVP STA (13:38)
[2020-07-24] MEDS ORDERED: ACET/COD 300 MG/30 MG STARTER PACK 6 TAB BTL PO STA (13:45)
[2020-07-24 14:05] VITALS: RESP 20
[2020-07-24 14:08] VITALS: BP 170/82; PULSE 75; TEMP 98.2
== END 2020-07-24 14:07 | disposition home or self-care (01) ==
LOC: EC 10:51
DX: N13.2 Hydronephrosis with renal and ureteral calculous obstruction (principal); I10 Essential (primary) hypertension; E11.9 Type 2 diabetes mellitus without complications; E78.5 Hyperlipidemia, unspecified; G89.29 Other chronic pain; M54.9 Dorsalgia, unspecified; Z79.84 Long term (current) use of oral hypoglycemic drugs; Z79.82 Long term (current) use of aspirin; Z79.899 Other long term (current) drug therapy
CPT/HCPCS: 36415; 74176; 80053; 81001; 82150; 83605; 83690; 85025; 99284

== ENCOUNTER 2020-07-25 14:23 | Emergency (ER) | payer MEDICARE ==
[2020-07-25 14:35] VITALS: BP 156/74; PULSE 98; RESP 20; TEMP 98.1
[2020-07-25] MEDS ORDERED: SODIUM CHLORIDE 0.9% 1,000 ML IV STA (14:50)
--- NOTE | 2020-07-25 14:52 | ED ---
Abdominal Pain HPI - General Chief Complaint: Abdominal Pain Stated Complaint: Recheck,Kidney stone Time Seen by Provider: 07/25/20 14:44 Source: patient Mode of arrival: ambulatory Limitations: no limitations - History of Present Illness Initial Comments: 80-year-old male with history of renal stones presenting to emergency Department with chief complaint of a kidney stone. Patient states he was diagnosed with a kidney stone yesterday and discharged with Tylenol 3 starter pack. Patient states he went to the medications with no improvement in symp toms. Patient states he continues to have left-sided flank pain. He denies any nausea or vomiting. States that he is here for pain management. Patient states he is previously tolerated [place] was when he had his other kidney stone. States she is currently on Keflex and is scheduled to see a urologist. Denies testicular or penile symptoms. Denies any other complaints. - Related Data Home Medications Medication Instructions Recorded Confirmed Repaglinide [Prandin] 1 mg PO QAM 08/26/17 07/24/20 Glimepiride [Amaryl] 2 mg PO DAILY 04/12/19 07/24/20 Pioglitazone [Actos] 30 mg PO DAILY 04/12/19 07/24/20 Repaglinide [Prandin] 0.5 mg PO HS 04/12/19 07/24/20 Aspirin EC [Ecotrin Low Dose] 81 mg PO DAILY 07/24/20 07/24/20 Glimepiride [Amaryl] 1 mg PO HS 07/24/20 07/24/20 Lidocaine 5% Patch [Lidoderm] 1 patch TOPICAL DAILY PRN 07/24/20 07/24/20 Rosuvastatin Calcium [Crestor] 40 mg PO HS 07/24/20 07/24/20 lisinopriL [Zestril] 20 mg PO DAILY 07/24/20 07/24/20 metFORMIN HCL [Glucophage] 500 mg PO BID 07/24/20 07/24/20 sitaGLIPtin [Januvia] 50 mg PO DAILY 07/24/20 07/24/20 Previous Rx's Medication Instructions Recorded Cephalexin [Keflex] 500 mg PO Q6HR 7 Days #28 cap 07/24/20 HYDROcodone/APAP 10-325MG [[place] 1 tab PO Q6HR PRN 3 Days #12 tab 07/25/20 10-325] Allergies Allergy/AdvReac Type Severity Reaction Status Date / Time No Known Allergies Allergy Verified 07/25/20 14:35 Review of Systems ROS Statement: Those systems with pertinent positive or pertinent negative responses have been documented in the HPI. ROS Other: All systems not noted in ROS Statement are negative. Past Medical History Past Medical History: Diabetes Mellitus, Hyperlipidemia, Hypertension Additional Past Medical History / Comment(s): 2004 staph infection in the spine, chronic back pain, kidney stones History of Any Multi-Drug Resistant Organisms: None Reported Additional Past Surgical History / Comment(s): hemorrhoidectomy, removal of encapsulated pocket of infection from spine, pain procedures, aortic valve replacement Past Anesthesia/Blood Transfusion Reactions: No Reported Reaction Past Psychological History: No Psychological Hx Reported Smoking Status: Never smoker Past Alcohol Use History: Occasional Past Drug Use History: None Reported - Past Family History Mother Family Medical History: Cancer Additional Family Medical History / Comment(s): UTERINE CANCER Brother(s) Family Medical History: Cancer Additional Family Medical History / Comment(s): COLON CANCER Father Family Medical History: Cancer Son(s) Family Medical History: Cancer General Exam Limitations: no limitations General appearance: alert, in no apparent distress Head exam: Present: atraumatic, normocephalic, normal inspection Eye exam: Present: normal appearance, PERRL, EOMI Pupils: Present: normal accommodation ENT exam: Present: normal exam, normal oropharynx, mucous membranes moist, TM's normal bilaterally, normal external ear exam Neck exam: Present: normal inspection, full ROM. Absent: tenderness Respiratory exam: Present: normal lung sounds bilaterally. Absent: respiratory distress, wheezes, rales Cardiovascular Exam: Present: regular rate, normal rhythm, normal heart sounds. Absent: bradycardia, tachycardia GI/Abdominal exam: Present: soft, tenderness (Left flank). Absent: distended, guarding, rebound, rigid Extremities exam: Present: normal inspection, full ROM, normal capillary refill. Absent: tenderness, pedal edema, joint swelling Back exam: Present: normal inspection, full ROM, CVA tenderness (L). Absent: tenderness, CVA tenderness (R) Neurological exam: Present: alert, oriented X3, normal gait Psychiatric exam: Present: normal affect, normal mood. Absent: depressed, agitated Skin exam: Present: warm, dry, intact, normal color Course Vital Signs 07/25/20 14:31 Temperature 98.1 F Pulse Rate 98 Respiratory 20 Rate Blood Pressure 156/74 O2 Sat by Pulse 95 Oximetry Medical Decision Making - Medical Decision Making 80-year-old male with history of renal stones presenting to the emergency department with chief complaint of a kidney stone. A physical examination, he has left flank pain. Otherwise he is well-appearing and is able to ambulate. Patient was given [place] 5 here. Patient will be discharged with a three-day course of [place]. Patient also signed the narcotic awareness form. He was advised to continue taking the Keflex. Advised not to drive or operative heavy machinery when taking medication. He is advised to continue his appointment with the urologist. Patient was offered laboratory work and imaging, he declined. Return parameters thoroughly discussed with patient was understanding and agreeable. Case discussed with physician. Disposition Clinical Impression: Renal calculus, left, Left flank pain Disposition: HOME SELF-CARE Condition: Stable Instructions (If sedation given, give patient instructions): Kidney Stones (ED) Additional Instructions: Take prescribed medication as directed. Do not drive or operate machinery when taking medication. Follow-up with a urologist. Continue taking Keflex. Return to emergency department if symptoms worsen. Prescriptions: HYDROcodone/APAP 10-325MG [[place] 10-325] 1 tab PO Q6HR PRN 3 Days #12 tab PRN Reason: Pain Is patient prescribed a controlled substance at d/c from ED?: Yes If prescribed controlled substance>3 days was MAPS reviewed?: Prescribed <3 Days Referrals: Danyell Park MD [Primary Care Provider] - 1-2 days Time of Disposition: 15:01
[2020-07-25] MEDS ORDERED: HYDROcodone/APAP 5-325MG 1 EACH TAB PO STA (14:58)
== END 2020-07-25 15:17 | disposition home or self-care (01) ==
LOC: EC 14:23
DX: N20.0 Calculus of kidney (principal); E11.9 Type 2 diabetes mellitus without complications; I10 Essential (primary) hypertension; E78.5 Hyperlipidemia, unspecified; Z79.84 Long term (current) use of oral hypoglycemic drugs; Z79.82 Long term (current) use of aspirin; Z79.899 Other long term (current) drug therapy; Z95.4 Presence of other heart-valve replacement
CPT/HCPCS: 99283

== ENCOUNTER 2020-07-27 08:21 | Emergency (ER) | payer MEDICARE ==
[2020-07-27 08:25] VITALS: TEMP 98.6
[2020-07-27] MEDS ORDERED: PANTOPRAZOLE 40 MG/10 ML VIAL IVP STA (08:40)
[2020-07-27] MEDS ORDERED: SODIUM CHLORIDE 0.9% 1,000 ML IV STA (08:40)
[2020-07-27] MEDS ORDERED: METOCLOPRAMIDE 5 MG/ML 2 ML VIAL IVP STA (08:40)
[2020-07-27] MEDS ORDERED: KETOROLAC 15 MG/ML 1 ML VIAL IVP STA (08:41)
--- NOTE | 2020-07-27 08:43 | ED ---
General Adult HPI - General Chief complaint: Abdominal Pain Stated complaint: Kidney stone Time Seen by Provider: 07/27/20 08:33 Source: patient, RN notes reviewed, old records reviewed Mode of arrival: wheelchair Limitations: no limitations - History of Present Illness Initial comments: Patient is a pleasant 80-year-old male presenting to emergency Department with complaints of left flank pain. Patient states he was here recently diagnosed with kidney stone. Patient also has a remote history of kidney stone with similar symptoms. Discomfort started getting worse again yesterday. Patient has nausea without vomiting. Decreased oral intake. No constipation or diarrhea. No dysuria or hematuria. Discomfort is left flank. Discomfort is severe at this time. - Related Data Home Medications Medication Instructions Recorded Confirmed Repaglinide [Prandin] 1 mg PO QAM 08/26/17 07/24/20 Glimepiride [Amaryl] 2 mg PO DAILY 04/12/19 07/24/20 Pioglitazone [Actos] 30 mg PO DAILY 04/12/19 07/24/20 Repaglinide [Prandin] 0.5 mg PO HS 04/12/19 07/24/20 Aspirin EC [Ecotrin Low Dose] 81 mg PO DAILY 07/24/20 07/24/20 Glimepiride [Amaryl] 1 mg PO HS 07/24/20 07/24/20 Lidocaine 5% Patch [Lidoderm] 1 patch TOPICAL DAILY PRN 07/24/20 07/24/20 Rosuvastatin Calcium [Crestor] 40 mg PO HS 07/24/20 07/24/20 lisinopriL [Zestril] 20 mg PO DAILY 07/24/20 07/24/20 metFORMIN HCL [Glucophage] 500 mg PO BID 07/24/20 07/24/20 sitaGLIPtin [Januvia] 50 mg PO DAILY 07/24/20 07/24/20 Previous Rx's Medication Instructions Recorded Cephalexin [Keflex] 500 mg PO Q6HR 7 Days #28 cap 07/24/20 HYDROcodone/APAP 10-325MG [[place] 1 tab PO Q6HR PRN 3 Days #12 tab 07/25/20 10-325] Ketorolac [Toradol] 10 mg PO Q6HR PRN #15 tab 07/27/20 Metoclopramide HCl [Reglan] 10 mg PO Q6HR PRN #15 tablet 07/27/20 Allergies Allergy/AdvReac Type Severity Reaction Status Date / Time No Known Allergies Allergy Verified 07/27/20 08:25 Review of Systems ROS Statement: Those systems with pertinent positive or pertinent negative responses have been documented in the HPI. ROS Other: All systems not noted in ROS Statement are negative. Constitutional: Denies: fever Eyes: Denies: eye pain ENT: Denies: ear pain Respiratory: Denies: cough Cardiovascular: Denies: chest pain Endocrine: Denies: fatigue Gastrointestinal: Reports: as per HPI, nausea. Denies: vomiting Genitourinary: Denies: dysuria Musculoskeletal: Denies: arthralgia Skin: Denies: rash Neurological: Denies: weakness Past Medical History Past Medical History: Diabetes Mellitus, Hyperlipidemia, Hypertension Additional Past Medical History / Comment(s): 2005 staph infection in the spine, chronic back pain, kidney stones History of Any Multi-Drug Resistant Organisms: None Reported Additional Past Surgical History / Comment(s): hemorrhoidectomy, removal of encapsulated pocket of infection from spine, pain procedures, aortic valve replacement Past Anesthesia/Blood Transfusion Reactions: No Reported Reaction Past Psychological History: No Psychological Hx Reported Smoking Status: Never smoker Past Alcohol Use History: Occasional Past Drug Use History: None Reported - Past Family History Mother Family Medical History: Cancer Additional Family Medical History / Comment(s): UTERINE CANCER Brother(s) Family Medical History: Cancer Additional Family Medical History / Comment(s): COLON CANCER Father Family Medical History: Cancer Son(s) Family Medical History: Cancer General Exam Limitations: no limitations General appearance: alert, in no apparent distress Head exam: Present: normocephalic Eye exam: Present: normal appearance Neck exam: Present: normal inspection Respiratory exam: Present: normal lung sounds bilaterally Cardiovascular Exam: Present: regular rate, normal rhythm Expanded Peripheral pulses: 2+: Posterior Tibialis (R), Posterior Tibialis (L), Dorsalis Pedis (R), Dorsalis Pedis (L) GI/Abdominal exam: Present: soft. Absent: distended, tenderness, guarding, rebound, rigid, pulsatile mass Extremities exam: Present: normal inspection Back exam: Present: CVA tenderness (L) Neurological exam: Present: alert Psychiatric exam: Present: normal affect, normal mood Skin exam: Present: normal color Course Vital Signs 07/27/20 08:22 Temperature 98.6 F Pulse Rate 102 H Respiratory 20 Rate Blood Pressure 178/102 O2 Sat by Pulse 96 Oximetry Medical Decision Making - Medical Decision Making Patient reevaluated and significantly improved. Discomfort is tolerable at this time. Patient states he did not take his diabetes medication yesterday. Patient will be given some more fluids and insulin prior to discharge. Patient has arty touchwith urology and is again notified and need for update. - Lab Data Result diagrams: 07/27/20 08:53 07/27/20 08:53 Lab Results 07/27/20 07/27/20 07/27/20 Range/Units 08:53 08:53 08:53 WBC 12.5 H (3.8-10.6) k/uL RBC 4.87 (4.30-5.90) m/uL Hgb 14.2 (13.0-17.5) gm/dL Hct 45.5 (39.0-53.0) % MCV 93.4 (80.0-100.0) fL MCH 29.2 (25.0-35.0) pg MCHC 31.2 (31.0-37.0) g/dL RDW 13.5 (11.5-15.5) % Plt Count 183 (150-450) k/uL MPV 7.7 Neutrophils % 86 % Lymphocytes % 6 % Monocytes % 6 % Eosinophils % 1 % Basophils % 0 % Neutrophils # 10.8 H (1.3-7.7) k/uL Lymphocytes # 0.7 L (1.0-4.8) k/uL Monocytes # 0.7 (0-1.0) k/uL Eosinophils # 0.1 (0-0.7) k/uL Basophils # 0.0 (0-0.2) k/uL Sodium 136 L (137-145) mmol/L Potassium 5.3 H (3.5-5.1) mmol/L Chloride 102 (98-107) mmol/L Carbon Dioxide 23 (22-30) mmol/L Anion Gap 11 mmol/L BUN 27 H (9-20) mg/dL Creatinine 2.13 H (0.66-1.25) mg/dL Est GFR (CKD-EPI)AfAm 33 (>60 ml/min/1.73 sqM) Est GFR (CKD-EPI)NonAf 28 (>60 ml/min/1.73 sqM) Glucose 296 H (74-99) mg/dL Calcium 9.4 (8.4-10.2) mg/dL Total Bilirubin 0.6 (0.2-1.3) mg/dL AST 26 (17-59) U/L ALT 22 (4-49) U/L Alkaline Phosphatase 60 (38-126) U/L Total Protein 7.7 (6.3-8.2) g/dL Albumin 4.5 (3.5-5.0) g/dL Amylase 61 (30-110) U/L Lipase 150 (23-300) U/L Urine Color Yellow Urine Appearance Clear (Clear) Urine pH 5.5 (5.0-8.0) Ur Specific [place] 1.020 (1.001-1.035) Urine Protein 2+ H (Negative) Urine Glucose (UA) 4+ H (Negative) Urine Ketones 1+ H (Negative) Urine Blood Large H (Negative) Urine Nitrite Negative (Negative) Urine Bilirubin Negative (Negative) Urine Urobilinogen <2.0 (<2.0) mg/dL Ur Leukocyte Esterase Negative (Negative) Urine RBC 150 H (0-5) /hpf Urine WBC 4 (0-5) /hpf Ur Squamous Epith Cells <1 (0-4) /hpf - Radiology Data Radiology results: image reviewed (KUB shows a distal migration of 3 mm calculus now at the level left UVJ.) Disposition Clinical Impression: Renal calculus, left Disposition: HOME SELF-CARE Condition: Stable Instructions (If sedation given, give patient instructions): Kidney Stones (ED) Additional Instructions: Continue fluid hydration. Please follow-up with primary care physician and urologist in the beginning of the week. Return for fever, uncontrolled pain or nausea, worsening symptoms or other concerns. Prescriptions have been sent to your pharmacy in [facility] Prescriptions: Metoclopramide HCl [Reglan] 10 mg PO Q6HR PRN #15 tablet PRN Reason: Nausea Ketorolac [Toradol] 10 mg PO Q6HR PRN #15 tab PRN Reason: Pain Is patient prescribed a controlled substance at d/c from ED?: No Referrals: Danyell Park MD [Primary Care Provider] - 1-2 days Time of Disposition: 09:39
[2020-07-27 09:12] LABS: Basophils % (A) 0 %; Eosinophils # (A) 0.1 k/uL (0-0.7); Eosinophils % (A) 1 %; HCT 45.5 % (39.0-53.0); HGB 14.2 gm/dL (13.0-17.5); Lymphocytes # (A) 0.7 k/uL (1.0-4.8); Lymphocytes % (A) 6 %; MCH 29.2 pg (25.0-35.0); MCHC 31.2 g/dL (31.0-37.0); MCV 93.4 fL (80.0-100.0); Mean Platelet Volume 7.7; Monocytes # (A) 0.7 k/uL (0-1.0); Monocytes % (A) 6 %; Neutrophils # (A) 10.8 k/uL (1.3-7.7); Neutrophils % (A) 86 %; Platelet Count 183 k/uL (150-450); RBC 4.87 m/uL (4.30-5.90); RDW 13.5 % (11.5-15.5); WBC 12.5 k/uL (3.8-10.6)
[2020-07-27 09:20] LABS: Appearance,Urine Clear (Clear); Bilirubin,Urine Negative (Negative); Blood,Urine Large (Negative); Color,Urine Yellow; Glucose,Urine (UA) 4+ (Negative); Ketones,Urine 1+ (Negative); Leukocyte Esterase,Urine Negative (Negative); Nitrite,Urine Negative (Negative); PH, Urine 5.5 (5.0-8.0); Protein,Urine 2+ (Negative); RBC,Urine 150 /hpf (0-5); Squamous Epithelial Cell,Urine <1 /hpf (0-4); Urobilinogen,Urine <2.0 mg/dL (<2.0); WBC,Urine 4 /hpf (0-5)
--- NOTE | 2020-07-27 09:22 | XR ---
EXAMINATION TYPE: XR KUB DATE OF EXAM: 07/27/2020 COMPARISON: CT 07/24/2020 HISTORY: Pain TECHNIQUE: Single supine KUB image of the abdomen is obtained FINDINGS: Small bowel demonstrates no evidence for dilatation or air fluid levels. Gas and fecal material is seen in non-distended colon. No convincing evidence for pneumoperitoneum. Right upper quadrant calculus may reflect a gallstone. There is distal migration of previously noted 3 mm calculus at the level of the left UPJ. Calculus is now located at the left UVJ. The lung bases are clear. The osseous structures are intact. IMPRESSION: 1. There is distal migration of previously noted 3 mm calculus at the level of the left UPJ. Calculu s is now located at the left UVJ.
[2020-07-27 09:24] LABS: Albumin 4.5 g/dL (3.5-5.0); Calcium 9.4 mg/dL (8.4-10.2); Potassium 5.3 mmol/L (3.5-5.1); Total Bilirubin 0.6 mg/dL (0.2-1.3); Total Protein 7.7 g/dL (6.3-8.2)
[2020-07-27] MEDS ORDERED: INSULIN REGULAR 100 UNIT/ML VIAL SQ ONE (09:34)
[2020-07-27 09:51] LABS: Glucose,Whole Blood 337 mg/dL (75-99)
[2020-07-27 09:56] VITALS: BP 160/84; PULSE 78; RESP 18
== END 2020-07-27 09:55 | disposition home or self-care (01) ==
LOC: EC 08:21
DX: N20.2 Calculus of kidney with calculus of ureter (principal); E11.9 Type 2 diabetes mellitus without complications; I10 Essential (primary) hypertension; E78.5 Hyperlipidemia, unspecified; Z79.84 Long term (current) use of oral hypoglycemic drugs; Z79.899 Other long term (current) drug therapy; Z79.82 Long term (current) use of aspirin; Z95.2 Presence of prosthetic heart valve
CPT/HCPCS: 36415; 80053; 82150; 83690; 85025; 81001; 74018; 99284; 96374; 96375 ×2; 96361; J2765; J1885; C9113

== ENCOUNTER → 2021-01-08 | Outpatient (CLI) | payer MEDICARE ==
[2021-01-08 19:00] LABS: Hemoglobin A1C 8.7 % (4.0-6.0)
[2021-01-09 00:38] LABS: African American GFR (CKD) 31.6 (60.0-200.0); Anion Gap 15.5 mmol/L (4.00-12.00); BUN/Creat Ratio 13.64 Ratio (12.00-20.00); Calcium 9.6 mg/dL (8.7-10.3); Carbon Dioxide 17.5 mmol/L (21.6-31.8); Chol/HDL Ratio 2.5; Non-African American GFR(CKD) 27.3 (60.0-200.0)
== END | disposition home or self-care (01) ==
LOC: LABWHC1 07:12
PROVIDERS: ATTEND Internal Medicine
DX: E11.65 Type 2 diabetes mellitus with hyperglycemia (principal); E55.9 Vitamin D deficiency, unspecified
CPT/HCPCS: 36415; 80048; 80061; 82043; 82306; 82570; 83036

== ENCOUNTER → 2021-01-26 | Outpatient (CLI) | payer MEDICARE | END | disposition home or self-care (01) | LOC: EC 10:59 | PROVIDERS: ATTEND Physician Assistant Medical | DX: M46.1 Sacroiliitis, not elsewhere classified (principal); Z87.891 Personal history of nicotine dependence; Z20.822 Contact with and (suspected) exposure to COVID-19 | CPT/HCPCS: 87635 ==

== ENCOUNTER → 2021-02-12 | Outpatient (CLI) | payer MEDICARE ==
--- NOTE | 2021-02-12 15:30 | US ---
EXAMINATION TYPE: US kidneys/renal and bladder DATE OF EXAM: 02/12/2021 COMPARISON: CT July 24, 2020 CLINICAL HISTORY: N18.3 Chronic kidney disease stage 3. known renal disease EXAM MEASUREMENTS: Right Kidney: 11.1 x 4.0 x 5.cm Left Kidney: 10.9 x 4.8 x 5.4cm Right Kidney: multiple cysts, largest = 4.9 x 4.2 x 3.6cm Left Kidney: multiple cysts, largest = 3.3 x 3.0 x 3.2cm Bladder: irregular wall Bilateral Jets seen: right Scattered thin-walled cysts of varying size and shape scattered throughout both kidneys. Some increas ed cortical echogenicity bilaterally. Findings consistent with products of chronic medical renal dise ase. No hydronephrosis noted bilaterally. Bladder shows mild distention without intraluminal mass. Mi ld to moderate trabeculation along the periphery is noted. IMPRESSION: No hydronephrosis seen bilaterally.
== END | disposition home or self-care (01) ==
LOC: RADUSWWP 14:52
PROVIDERS: ATTEND Internal Medicine
DX: N18.30 Chronic kidney disease, stage 3 unspecified (principal)
CPT/HCPCS: 76770

== ENCOUNTER → 2021-05-19 | Outpatient (CLI) | payer MEDICARE ==
[2021-05-19 12:07] LABS: African American GFR (CKD) 42.9 (60.0-200.0); Anion Gap 7.9 mmol/L (4.00-12.00); BUN/Creat Ratio 14.12 Ratio (12.00-20.00); Calcium 9.4 mg/dL (8.7-10.3); Carbon Dioxide 26.1 mmol/L (21.6-31.8); Potassium 4.9 mmol/L (3.5-5.5)
[2021-05-19 14:15] LABS: Hemoglobin A1C 9.1 % (4.0-6.0)
== END | disposition home or self-care (01) ==
LOC: LABWHC1 07:02
PROVIDERS: ATTEND Family Medicine
DX: E11.65 Type 2 diabetes mellitus with hyperglycemia (principal)
CPT/HCPCS: 36415; 80048; 83036

== ENCOUNTER 2021-06-15 12:32 | Emergency (ER) | payer MEDICARE ==
[2021-06-15 12:51] VITALS: RESP 18; TEMP 98.4
[2021-06-15] MEDS ORDERED: ALBUTEROL HFA INHALER INHALATION STA (13:02)
--- NOTE | 2021-06-15 13:04 | ED ---
General Adult HPI - General Chief complaint: Upper Respiratory Infection Stated complaint: cough Time Seen by Provider: 06/15/21 12:35 Source: patient, RN notes reviewed Mode of arrival: ambulatory Limitations: no limitations - History of Present Illness Initial comments: Patient is a pleasant 81-year-old male presenting to the emergency Department with cough and concern for upper respiratory symptoms. Onset of symptoms was close to 2 weeks ago. Patient does have cough that is been dry for the past few days however before that had some clear sputum. No fever. Patient denies any chest discomfort however states it does hurt to cough. No leg pain or leg swelling. Patient has been immunized for COVID-19. Patient states he came to the emergency department to make sure that he doesn't have pneumonia. - Related Data Home Medications Medication Instructions Recorded Confirmed Pioglitazone [Actos] 30 mg PO DAILY 04/12/19 06/15/21 Repaglinide [Prandin] 0.5 mg PO AC-TID 04/12/19 06/15/21 Glimepiride [Amaryl] 1 mg PO DAILY 07/24/20 06/15/21 Rosuvastatin Calcium [Crestor] 40 mg PO DAILY 07/24/20 06/15/21 lisinopriL [Zestril] 20 mg PO DAILY 07/24/20 06/15/21 metFORMIN HCL [Glucophage] 500 mg PO DAILY 07/24/20 06/15/21 sitaGLIPtin [Januvia] 50 mg PO DAILY 07/24/20 06/15/21 Cefdinir [Omnicef] 300 mg PO Q12HR 06/15/21 06/15/21 Diclofenac Sodium 3% Gel 1 applic TOPICAL QID PRN 06/15/21 06/15/21 Previous Rx's Medication Instructions Recorded Albuterol Sulfate [Albuterol 2 puff INHALATION Q6H PRN #8.5 gm 06/15/21 Sulfate Hfa] Allergies Allergy/AdvReac Type Severity Reaction Status Date / Time No Known Allergies Allergy Verified 06/15/21 12:51 Review of Systems ROS Statement: Those systems with pertinent positive or pertinent negative responses have been documented in the HPI. ROS Other: All systems not noted in ROS Statement are negative. Constitutional: Denies: fever Eyes: Denies: eye pain ENT: Denies: ear pain Respiratory: Reports: cough, dyspnea (Patient states he may be a little bit short of breath.) Cardiovascular: Reports: as per HPI Endocrine: Denies: fatigue Gastrointestinal: Denies: abdominal pain Genitourinary: Denies: dysuria Musculoskeletal: Denies: back pain Skin: Denies: rash Neurological: Denies: weakness Past Medical History Past Medical History: Diabetes Mellitus, Hyperlipidemia, Hypertension Additional Past Medical History / Comment(s): 2005 staph infection in the spine, chronic back pain, kidney stones History of Any Multi-Drug Resistant Organisms: None Reported Additional Past Surgical History / Comment(s): hemorrhoidectomy, removal of encapsulated pocket of infection from spine, pain procedures, aortic valve repl acement Past Anesthesia/Blood Transfusion Reactions: No Reported Reaction Past Psychological History: No Psychological Hx Reported Smoking Status: Never smoker Past Alcohol Use History: Occasional Past Drug Use History: None Reported - Past Family History Mother Family Medical History: Cancer Additional Family Medical History / Comment(s): UTERINE CANCER Brother(s) Family Medical History: Cancer Additional Family Medical History / Comment(s): COLON CANCER Father Family Medical History: Cancer Son(s) Family Medical History: Cancer General Exam Limitations: no limitations General appearance: alert, in no apparent distress Head exam: Present: normocephalic Eye exam: Present: normal appearance Neck exam: Present: normal inspection Respiratory exam: Present: normal lung sounds bilaterally. Absent: respiratory distress, wheezes Cardiovascular Exam: Present: regular rate, normal rhythm Expanded Peripheral pulses: 2+: Radial (R), Radial (L), Dorsalis Pedis (R), Dorsalis Pedis (L) GI/Abdominal exam: Present: soft. Absent: tenderness Extremities exam: Present: normal inspection. Absent: pedal edema, calf tenderness Neurological exam: Present: alert Psychiatric exam: Present: normal affect, normal mood Skin exam: Present: normal color Course Vital Signs 06/15/21 06/15/21 12:48 13:20 Temperature 98.4 F Pulse Rate 93 Respiratory 18 18 Rate Blood Pressure 141/65 O2 Sat by Pulse 95 Oximetry EKG Findings - EKG Comments: EKG Findings:: Sinus rhythm with a rate of 86. SD 200. QRS 118. QT 396. QTc 473. Normal axis. Incomplete right bundle-branch block. No acute ST change. Medical Decision Making - Medical Decision Making Patient reevaluated and resting comfortably in bed. Patient does have some mild dehydration and hyperglycemia. Patient given fluid bolus and insulin. Sugar will be rechecked. Patient updated on results and plan. - Lab Data Result diagrams: 06/15/21 13:20 06/15/21 13:20 Lab Results 06/15/21 06/15/21 06/15/21 Range/Units 13:20 13:20 13:20 WBC 9.0 (3.8-10.6) k/uL RBC 4.65 (4.30-5.90) m/uL Hgb 14.1 (13.0-17.5) gm/dL Hct 43.7 (39.0-53.0) % MCV 94.0 (80.0-100.0) fL MCH 30.3 (25.0-35.0) pg MCHC 32.3 (31.0-37.0) g/dL RDW 12.6 (11.5-15.5) % Plt Count 232 (150-450) k/uL MPV 7.8 Neutrophils % 78 % Lymphocytes % 11 % Monocytes % 8 % Eosinophils % 1 % Basophils % 0 % Neutrophils # 7.0 (1.3-7.7) k/uL Lymphocytes # 1.0 (1.0-4.8) k/uL Monocytes # 0.7 (0-1.0) k/uL Eosinophils # 0.1 (0-0.7) k/uL Basophils # 0.0 (0-0.2) k/uL PT 10.4 (9.0-12.0) sec INR 1.0 (<1.2) APTT 23.7 (22.0-30.0) sec D-Dimer 0.64 H (<0.60) mg/L FEU Sodium 136 L (137-145) mmol/L Potassium 5.1 (3.5-5.1) mmol/L Chloride 103 (98-107) mmol/L Carbon Dioxide 20 L (22-30) mmol/L Anion Gap 13 mmol/L BUN 47 H (9-20) mg/dL Creatinine 2.26 H (0.66-1.25) mg/dL Est GFR (CKD-EPI)AfAm 30 (>60 ml/min/1.73 sqM) Est GFR (CKD-EPI)NonAf 26 (>60 ml/min/1.73 sqM) Glucose 409 H (74-99) mg/dL Calcium 9.5 (8.4-10.2) mg/dL Magnesium 2.1 (1.6-2.3) mg/dL Total Bilirubin 0.5 (0.2-1.3) mg/dL AST 29 (17-59) U/L ALT 44 (4-49) U/L Alkaline Phosphatase 81 (38-126) U/L Troponin I (0.000-0.034) ng/mL NT-Pro-B Natriuret Pep pg/mL Total Protein 7.3 (6.3-8.2) g/dL Albumin 4.1 (3.5-5.0) g/dL Coronavirus (PCR) (Not Detectd) 06/15/21 06/15/21 06/15/21 Range/Units 13:20 13:20 14:02 WBC (3.8-10.6) k/uL RBC (4.30-5.90) m/uL Hgb (13.0-17.5) gm/dL Hct (39.0-53.0) % MCV (80.0-100.0) fL MCH (25.0-35.0) pg MCHC (31.0-37.0) g/dL RDW (11.5-15.5) % Plt Count (150-450) k/uL MPV Neutrophils % % Lymphocytes % % Monocytes % % Eosinophils % % Basophils % % Neutrophils # (1.3-7.7) k/uL Lymphocytes # (1.0-4.8) k/uL Monocytes # (0-1.0) k/uL Eosinophils # (0-0.7) k/uL Basophils # (0-0.2) k/uL PT (9.0-12.0) sec INR (<1.2) APTT (22.0-30.0) sec D-Dimer (<0.60) mg/L FEU Sodium (137-145) mmol/L Potassium (3.5-5.1) mmol/L Chloride (98-107) mmol/L Carbon Dioxide (22-30) mmol/L Anion Gap mmol/L BUN (9-20) mg/dL Creatinine (0.66-1.25) mg/dL Est GFR (CKD-EPI)AfAm (>60 ml/min/1.73 sqM) Est GFR (CKD-EPI)NonAf (>60 ml/min/1.73 sqM) Glucose (74-99) mg/dL Calcium (8.4-10.2) mg/dL Magnesium (1.6-2.3) mg/dL Total Bilirubin (0.2-1.3) mg/dL AST (17-59) U/L ALT (4-49) U/L Alkaline Phosphatase (38-126) U/L Troponin I <0.012 (0.000-0.034) ng/mL NT-Pro-B Natriuret Pep 75 pg/mL Total Protein (6.3-8.2) g/dL Albumin (3.5-5.0) g/dL Coronavirus (PCR) Detected A (Not Detectd) - Radiology Data Radiology results: image reviewed (Chest x-ray questions basilar atelectasis versus pneumonia) Disposition Clinical Impression: COVID-19, Hyperglycemia, Dehydration Disposition: HOME SELF-CARE Condition: Stable Instructions (If sedation given, give patient instructions): Upper Respiratory Infection (ED), Coronavirus Disease 2019 (COVID-19) Additional Instructions: Gaqr-cfi-ahoteck vitamin C, vitamin D, and Zinc. Melatonin at bedtime may help. Please do follow-up with primary care physician in the next day or 2 for recheck. Return for difficulty breathing, not tolerating fluids, uncontrolled fevers, worsening symptoms or other concerns. Prescription for inhaler has been sent to pharmacy. Prescriptions: Albuterol Sulfate [Albuterol Sulfate Hfa] 2 puff INHALATION Q6H PRN #8.5 gm PRN Reason: Shortness Of Breath Is patient prescribed a controlled substance at d/c from ED?: No Referrals: Bi Paulino MD [STAFF PHYSICIAN] - 1-2 days Time of Disposition: 14:57
[2021-06-15 13:36] LABS: Basophils % (A) 0 %; Eosinophils # (A) 0.1 k/uL (0-0.7); Eosinophils % (A) 1 %; HCT 43.7 % (39.0-53.0); HGB 14.1 gm/dL (13.0-17.5); Lymphocytes % (A) 11 %; MCH 30.3 pg (25.0-35.0); MCHC 32.3 g/dL (31.0-37.0); Mean Platelet Volume 7.8; Monocytes # (A) 0.7 k/uL (0-1.0); Monocytes % (A) 8 %; Neutrophils % (A) 78 %; Platelet Count 232 k/uL (150-450); RBC 4.65 m/uL (4.30-5.90); RDW 12.6 % (11.5-15.5)
[2021-06-15 13:50] LABS: Albumin 4.1 g/dL (3.5-5.0); Calcium 9.5 mg/dL (8.4-10.2); Magnesium 2.1 mg/dL (1.6-2.3); Potassium 5.1 mmol/L (3.5-5.1); Total Bilirubin 0.5 mg/dL (0.2-1.3); Total Protein 7.3 g/dL (6.3-8.2)
[2021-06-15] MEDS ORDERED: INSULIN REGULAR 100 UNIT/ML VIAL (IM/SQ) SQ ONE (14:00)
--- NOTE | 2021-06-15 14:06 | XR ---
EXAMINATION TYPE: XR chest 2V DATE OF EXAM: 06/15/2021 COMPARISON: CT 07/24/2020 HISTORY: Chest pain TECHNIQUE: Frontal and lateral views of the chest are obtained. FINDINGS: Patient is rotated. There is elevation of right hemidiaphragm. Patchy basilar density is n oted. Cardiac mediastinal silhouette is within normal limits. Aorta is dense. There are overlying swetha ds. No evident pneumothorax. There are overlying artifacts. Increased density present in the right up per quadrant is due to gallstones. Postop changes are noted status post TAVR procedure. Calcified hil ar nodes are present. IMPRESSION: Basilar atelectasis versus pneumonia, correlate. Postop procedural change. Cholelithiasi s.
[2021-06-15 14:11] LABS: Partial Thromboplastin Time 23.7 sec (22.0-30.0); Prothrombin Time 10.4 sec (9.0-12.0)
[2021-06-15] MEDS ORDERED: SODIUM CHLORIDE 0.9% 500 ML 500 ML IV STA (14:21)
[2021-06-15 15:32] LABS: Glucose,Whole Blood 314 mg/dL (75-99)
[2021-06-15 15:46] VITALS: BP 138/78; PULSE 80
== END 2021-06-15 15:50 | disposition home or self-care (01) ==
LOC: EC 12:32
DX: U07.1 COVID-19 (principal); E86.0 Dehydration; E11.65 Type 2 diabetes mellitus with hyperglycemia; I10 Essential (primary) hypertension; E78.5 Hyperlipidemia, unspecified; Z79.84 Long term (current) use of oral hypoglycemic drugs; Z79.899 Other long term (current) drug therapy
CPT/HCPCS: 36415; 71046; 80053; 83735; 83880; 84484; 85025; 85379; 85610; 85730; 87635; 93005; 94640; 96372; 99284

== ENCOUNTER 2021-06-24 10:54 | Emergency (ER) | payer MEDICARE ==
[2021-06-24 11:09] VITALS: BP 140/71; PULSE 73; RESP 18; TEMP 97.7
--- NOTE | 2021-06-24 11:23 | ED ---
General Adult HPI - General Chief complaint: Recheck/Abnormal Lab/Rx Stated complaint: covid test Time Seen by Provider: 06/24/21 11:15 Source: patient Mode of arrival: ambulatory Limitations: no limitations - History of Present Illness Initial comments: Dictation was produced using Cloneless dictation software. please excuse any grammatical, word or spelling errors. Chief Complaint: 81-year-old male seeking covid test History of Present Illness: Patient is an 81-year-old male who presents emergency department requesting a coronavirus test. Patient tested +3-4 weeks ago. States that his symptoms lasted for approximately one week. Denies any symptoms today. He is here in emergency department requesting a tested again. Patient received his vaccine. He has no complaints. The ROS documented in this emergency department record has been reviewed and confirmed by me. Those systems with pertinent positive or negative responses have been documented in the HPI. All other systems are other negative and/or noncontributory. PHYSICAL EXAM: General Impression: Alert and oriented x3, not in acute distress HEENT: Normocephalic atraumatic, extra-ocular movements intact, pupils equal and reactive to light bilaterally, mucous membranes moist. Cardiovascular: Heart regular rate and rhythm Chest: Able to complete full sentences, no retractions, no tachypnea Musculoskeletal: Pulses present and equal in all extremities, no peripheral edema Motor: no focal deficits noted Neurological: CN II-XII grossly intact, no focal motor or sensory deficits noted Skin: Intact with no visualized rashes Psych: Normal affect and mood ED course: 81-year-old male requesting coronavirus test. Vital signs on arrival are within acceptable limits. Patient has no medical complaints. Coronavirus test positive. Patient is well-appearing. Not hypoxic no respiratory distress. Vital signs are stable. Patient is outside the window for any sort of ER intervention. Patient will be discharged. Advised follow-up with primary care doctor. - Related Data Home Medications Medication Instructions Recorded Confirmed Pioglitazone [Actos] 30 mg PO DAILY 04/12/19 06/15/21 Repaglinide [Prandin] 0.5 mg PO AC-TID 04/12/19 06/15/21 Glimepiride [Amaryl] 1 mg PO DAILY 07/24/20 06/15/21 Rosuvastatin Calcium [Crestor] 40 mg PO DAILY 07/24/20 06/15/21 lisinopriL [Zestril] 20 mg PO DAILY 07/24/20 06/15/21 metFORMIN HCL [Glucophage] 500 mg PO DAILY 07/24/20 06/15/21 sitaGLIPtin [Januvia] 50 mg PO DAILY 07/24/20 06/15/21 Cefdinir [Omnicef] 300 mg PO Q12HR 06/15/21 06/15/21 Diclofenac Sodium 3% Gel 1 applic TOPICAL QID PRN 06/15/21 06/15/21 Previous Rx's Medication Instructions Recorded Albuterol Sulfate [Albuterol 2 puff INHALATION Q6H PRN #8.5 gm 06/15/21 Sulfate Hfa] Allergies Allergy/AdvReac Type Severity Reaction Status Date / Time No Known Allergies Allergy Verified 06/24/21 11:04 Review of Systems ROS Statement: Those systems with pertinent positive or pertinent negative responses have been documented in the HPI. ROS Other: All systems not noted in ROS Statement are negative. Past Medical History Past Medical History: Diabetes Mellitus, Hyperlipidemia, Hypertension Additional Past Medical History / Comment(s): 2005 staph infection in the spine, chronic back pain, kidney stones History of Any Multi-Drug Resistant Organisms: None Reported Additional Past Surgical History / Comment(s): hemorrhoidectomy, removal of encapsulated pocket of infection from spine, pain procedures, aortic valve replacement Past Anesthesia/Blood Transfusion Reactions: No Reported Reaction Past Psychological History: No Psychological Hx Reported Smoking Status: Never smoker Past Alcohol Use History: Occasional Past Drug Use History: None Reported - Past Family History Mother Family Medical History: Cancer Additional Family Medical History / Comment(s): UTERINE CANCER Brother(s) Family Medical History: Cancer Additional Family Medical History / Comment(s): COLON CANCER Father Family Medical History: Cancer Son(s) Family Medical History: Cancer General Exam Limitations: no limitations Course Vital Signs 06/24/21 11:04 Temperature 97.7 F Pulse Rate 73 Respiratory 18 Rate Blood Pressure 140/71 O2 Sat by Pulse 96 Oximetry Medical Decision Making - Lab Data Lab Results 06/24/21 Range/Units 11:09 Coronavirus (PCR) Detected A (Not Detectd) Disposition Clinical Impression: Coronavirus infection Disposition: HOME SELF-CARE Condition: Good Instructions (If sedation given, give patient instructions): Coronavirus Disease 2019 (COVID-19) Is patient prescribed a controlled substance at d/c from ED?: No Referrals: None,Stated [Primary Care Provider] - 1-2 days
== END 2021-06-24 11:48 | disposition home or self-care (01) ==
LOC: EC 10:54
DX: U07.1 COVID-19 (principal); E11.9 Type 2 diabetes mellitus without complications; I10 Essential (primary) hypertension; E78.5 Hyperlipidemia, unspecified; Z79.899 Other long term (current) drug therapy; Z79.84 Long term (current) use of oral hypoglycemic drugs
CPT/HCPCS: 87635; 99283

== ENCOUNTER → 2021-08-09 | Outpatient (CLI) | payer MEDICARE ==
[2021-08-09 09:03] LABS: Basophils % (A) 0 %; Eosinophils # (A) 0.2 k/uL (0-0.7); Eosinophils % (A) 4 %; HCT 39.2 % (39.0-53.0); HGB 12.9 gm/dL (13.0-17.5); Lymphocytes # (A) 1.2 k/uL (1.0-4.8); Lymphocytes % (A) 20 %; MCH 30.2 pg (25.0-35.0); MCHC 32.9 g/dL (31.0-37.0); MCV 91.7 fL (80.0-100.0); Mean Platelet Volume 8.2; Monocytes # (A) 0.5 k/uL (0-1.0); Monocytes % (A) 9 %; Neutrophils # (A) 4.1 k/uL (1.3-7.7); Neutrophils % (A) 66 %; Platelet Count 187 k/uL (150-450); RBC 4.27 m/uL (4.30-5.90); RDW 13.7 % (11.5-15.5); WBC 6.2 k/uL (3.8-10.6)
== END | disposition home or self-care (01) ==
LOC: LABPAT 08-08 11:56
PROVIDERS: ATTEND Surgery
DX: Z01.812 Encounter for preprocedural laboratory examination (principal); K40.90 Unilateral inguinal hernia, without obstruction or gangrene, not specified as recurrent
CPT/HCPCS: 85025; 93005

== ENCOUNTER 2021-08-15 05:50 | Day surgery (SDC) | payer MEDICARE ==
[2021-08-13 14:37] VITALS: BMI 28.4
[~2021-08-15 05:50] MED LIST changes: -ALPRAZolam 0.25 MG TAB PO PRN; -ALPRAZolam 0.5 MG TAB PO PRN; -ASPIRIN 325 MG TAB PO STA; -ATORVASTATIN 80 MG TAB PO STA; +HEPARIN SODIUM,PORCINE/PF 5,000 UNIT/0.5 ML SYRINGE SQ PRN; -NITROGLYCERIN SL TABS 0.4 MG TAB SUBLINGUAL PRN; -SODIUM CHLORIDE 0.9% 1,000 ML in EMPTY BAG 1 BAG IV ONE
[2021-08-15] MEDS ORDERED: DEXAMETHASONE SOD PHOSPHATE 4 MG/ML 1 ML VIAL IV ONE (05:52)
[2021-08-15] MEDS ORDERED: ONDANSETRON 4 MG/2 ML VIAL IVP ONE (05:52)
[2021-08-15] MEDS ORDERED: LACTATED RINGERS 1,000 ML IV SCH (05:52)
[2021-08-15] MEDS ORDERED: MIDAZOLAM 2 MG/2 ML VIAL IV PRN (05:52)
[2021-08-15 06:39] LABS: Glucose,Whole Blood 194 mg/dL (75-99)
[2021-08-15 06:52] VITALS: RESP 16; TEMP 97.8
[2021-08-15] MEDS ORDERED: PHENYLEPHRINE-0.9% NACL SYG 1,000 MCG/10 ML SYRINGE ONE (07:43)
[2021-08-15] MEDS ORDERED: PROPOFOL 10 MG/ML 20 ML VIAL IV ONE (07:43)
[2021-08-15] MEDS ORDERED: HYDROmorphone (PF) 1 MG/ML ONE (07:43)
[2021-08-15] MEDS ORDERED: SUCCINYLCHOLINE CHLORIDE 100 MG/5 ML SYR IV ONE (07:43)
[2021-08-15] MEDS ORDERED: LIDOCAINE 1% INJ 10MG/ML (20 ML MDV) ONE (07:43)
[2021-08-15] MEDS ORDERED: ROCURONIUM 10 MG/ML (5 ML VIAL) IV ONE (07:43)
[2021-08-15] MEDS ORDERED: NEOSTIGMINE 1 MG/ML 10 ML VIAL ONE (07:43)
[2021-08-15] MEDS ORDERED: GLYCOPYRROLATE 0.2 MG/ML 2 ML VIAL ONE (07:43)
[2021-08-15] MEDS ORDERED: .fentaNYL (PF) 50 MCG/ML 2 ML AMP ONE (07:43)
[2021-08-15] MEDS ORDERED: ACETAMINOPHEN IV (For NPO) 1,000 MG/100 ML VIAL ONE (07:43)
[2021-08-15] MEDS ORDERED: BUPIVACAIN-EPI 0.25%-1:200,000 30 ML VIAL SQ ONE ×2 (08:18→08:20)
[2021-08-15] MEDS ORDERED: LACTATED RINGERS 1,000 ML IV ONE (09:36)
[2021-08-15] MEDS ORDERED: TAMSULOSIN 0.4 MG CAP.ER.24H PO STA (09:57)
--- NOTE | 2021-08-15 09:57 | P.OP ---
Date of Procedure: 08/15/21 Procedure(s) Performed: PREOPERATIVE DIAGNOSIS: Right inguinal hernia POSTOPERATIVE DIAGNOSIS: Right indirect inguinal hernia PROCEDURE: Laparoscopic da Josselin assisted repair right indirect inguinal hernia with mesh SURGEON: Dr. Proctor ANESTHESIA: General OPERATIVE PROCEDURE DETAILS: Patient was placed in the operating table in the supine position. The patient was placed under general anesthesia. The abdomen was prepped and draped in usual sterile fashion. A small curvilinear supraumbilical incision was made. The fascia was retracted anteriorly with Silvestre forceps. The Veress needle was inserted. The saline drop test was normal. Insufflation took place to 15 mmHg. An 8 mm trocar was placed into the peritoneal cavity. 2 additional 8 mm trochars were placed in the right upper quadrant and left upper quadrant under visualization. The robotic arms were then brought in and docked into place. The fenestrated bipolar was used in the left arm and the laparoscopic dee was utilized in the right arm. A 30 8 mm scope was used in the up position. The peritoneal cavity was inspected. The p atient had a moderate-sized right indirect inguinal hernia. There was no hernia seen on the left-hand side. The peritoneum was incised in a horizontal fashion cephalad to the internal inguinal ring. Following that careful dissection of the preperitoneal space took place. This took place using both electrocautery, sharp dissection but primarily blunt dissection. Visualization of the pubic tubercle and Grant's ligament took place medially. Full dissection took place laterally as well. The hernia sac was fully dissected. Once we had adequate space the extra-large Bard 3-D mid mesh was advanced into the preperitoneal space and flattened out appropriately to cover all potential hernia sites. No sutures were used. The peritoneal defect was then closed using a absorbable 2-0 VLok suture. The hernia sac was incorporated into the peritoneal closure to help prevent future recurrence. The pneumoperitoneum was then evacuated. The skin of all 3 sites was closed using a 4-0 Monocryl stitch. Skin glue was then applied. TYPE OF MESH USED: Bard extra-large 3-D mid LOCATION OF MESH: Preperitoneal FIXATION: None DISPOSITION: Stable to recovery room
[2021-08-15] MEDS: HYDROmorphone 0.5 MG/0.5 ML SYRINGE IVP PRN ×2 (10:05→10:24)
[2021-08-15 11:51] VITALS: BP 175/76; PULSE 81
[2021-08-15] MEDS ORDERED: ACETAMINOPHEN TAB 325 MG TAB PO SCH (12:00)
[2021-08-15] MEDS ORDERED: IBUPROFEN 600 MG TAB PO SCH (15:00)
== END 2021-08-15 12:31 | disposition home or self-care (01) ==
LOC: OR 05:50
PROVIDERS: ATTEND Surgery
DX: K40.90 Unilateral inguinal hernia, without obstruction or gangrene, not specified as recurrent (principal)
CPT/HCPCS: 49650; 86900; 86901; 86850; C1781; J2710; J0690; J2405; J2001; J3010; J1170 ×2; J0131; J2370; J0330; J2704; J1790

== ENCOUNTER → 2021-09-22 | Outpatient (CLI) | payer MEDICARE ==
[2021-09-22 11:30] LABS: African American GFR (CKD) 42.9 (60.0-200.0); BUN/Creat Ratio 15.59 Ratio (12.00-20.00); Blood Urea Nitrogen 26.5 mg/dL (9.0-27.0); Calcium 9.4 mg/dL (8.7-10.3); Chloride 107 mmol/L (96-109); Chol/HDL Ratio 2.11 Ratio; Glucose 184 mg/dL (70-110); LDL Cholesterol,Calculated 15.3 mg/dL (0.0-131.0); Potassium 4.8 mmol/L (3.5-5.5); Sodium 141 mmol/L (135-145)
== END | disposition home or self-care (01) ==
LOC: LABWHC1 06:59
PROVIDERS: ATTEND Family Medicine
DX: E11.65 Type 2 diabetes mellitus with hyperglycemia (principal); E55.9 Vitamin D deficiency, unspecified
CPT/HCPCS: 36415; 80048; 80061; 82043; 82306; 82570; 83036

== ENCOUNTER → 2022-02-27 | Outpatient (CLI) | payer MEDICARE ==
[2022-02-27 10:53] LABS: African American GFR (CKD) 37.5 (60.0-200.0); Anion Gap 11.9 mmol/L (10.00-18.00); BUN/Creat Ratio 11.95 Ratio (12.00-20.00); Blood Urea Nitrogen 22.7 mg/dL (9.0-27.0); Non-African American GFR(CKD) 32.3 (60.0-200.0); Potassium 5.2 mmol/L (3.5-5.5)
== END | disposition home or self-care (01) ==
LOC: LABWHC1 07:01
PROVIDERS: ATTEND Family Medicine
DX: E11.65 Type 2 diabetes mellitus with hyperglycemia (principal)
CPT/HCPCS: 36415; 80048; 83036

== ENCOUNTER → 2022-03-30 | Outpatient (CLI) | payer MEDICARE ==
--- NOTE | 2022-03-30 15:46 | US ---
EXAMINATION TYPE: US kidneys/renal and bladder DATE OF EXAM: 03/30/2022 COMPARISON: US dated 02/12/2021 CLINICAL HISTORY: N18.31 STAGE 3 CKD. EXAM MEASUREMENTS: Right Kidney: 9.9 x 4.3 x 5.1 cm Left Kidney: 11.0 x 5.9 x 5.7 cm Multiple bilateral cysts, largest measured. Right Kidney: largest cyst measures 4.1 x 3.9 x 4.3 cm Left Kidney: largest cyst measures 3.6 x 4.0 x 3.5 cm Bladder: wnl Bilateral Jets seen: Yes IMPRESSION: 1. Bilateral renal cysts.
== END | disposition home or self-care (01) ==
LOC: RADUSWWP 15:13
PROVIDERS: ATTEND Internal Medicine Geriatric Medicine
DX: N18.31 Chronic kidney disease, stage 3a (principal); N28.1 Cyst of kidney, acquired
CPT/HCPCS: 76770

== ENCOUNTER → 2022-04-03 | Outpatient (CLI) | payer MEDICARE ==
--- NOTE | 2022-04-04 17:17 | MR ---
EXAMINATION TYPE: MR lumbar spine wo con DATE OF EXAM: 04/03/2022 COMPARISON: Outside MRI lumbar spine August 03, 2020 HISTORY: Spinal stenosis. TECHNIQUE: Multiplanar, multisequence imaging of the lumbar spine is performed without IV contrast. FINDINGS: Sagittal images of the lumbar spine show vertebral body heights to remain satisfactory. Sta ble slight grade 1 retrolisthesis L3 on L4 and L1 on L2. Multilevel disc desiccation with moderate di sc space narrowing and heterogeneous Modic type I endplate changes with mild/moderate anterior spurri ng L1-L2 level. Persistent mild to moderate disc space narrowing L3-L4 level. The conus medullaris r emains normal in position and signal ending mid L1 level. Axial images at T12-L1 level shows mild broad-based disc bulge mildly effacing the anterior thecal sa c, bilateral neural foramina are patent. No significant change from prior. Axial images at L1-L2 level shows mild broad-based disc bulge mildly effacing the anterior thecal sac , patent bilateral neural foramina. No significant change from prior. Axial images at L2-L3 level show mild to moderate facet arthropathy and ligamentum flavum hypertrophy . Increased epidural fat is present. No significant change from prior. Axial images at L3-L4 level show spondylolisthesis with moderate facet arthropathy and ligamentum fla vum hypertrophy. There is [id number] broad disc bulge mildly effacing the anterior thecal sac. There is mild bilateral anterior inferior neural foraminal narrowing. No significant change from prio r. Axial images at L4-L5 level show moderate to advanced facet arthropathy bilaterally effacing the late ral thecal sac. No significant disc herniation. Bilateral neural foramina are patent. No significant change from prior. Axial images at L5-S1 level shows mild to moderate facet arthropathy bilaterally. Spinal canal is pre served. Bilateral neural foramina are patent. Round T2 hyperintense lesions throughout right kidney felt to reflect simple thin-walled cysts are r edemonstrated, exophytic isointense lesion posteriorly left kidney is stable in size favoring protein aceous cyst. IMPRESSION: Multilevel spondylolisthesis and degenerative changes in the lumbar spine as detailed abo ve. No significant change or degenerative progression from outside prior MRI.
== END | disposition home or self-care (01) ==
LOC: RADMRIMAIN 03-28 12:02
DX: M48.07 Spinal stenosis, lumbosacral region (principal)
CPT/HCPCS: 72148

== ENCOUNTER → 2022-09-07 | Outpatient (CLI) | payer MEDICARE ==
[2022-09-07 14:46] LABS: Chol/HDL Ratio 2.49 Ratio; LDL Cholesterol,Calculated 48.5 mg/dL (0.0-131.0)
[2022-09-07 15:45] LABS: ALT 20 U/L (10-49); AST 27 U/L (14-35); African American GFR (CKD) 42.6 (60.0-200.0); Albumin 4.3 g/dL (3.8-4.9); Albumin/Globulin Ratio 1.39 (1.60-3.17); Alkaline Phosphatase 58 U/L (41-126); BUN/Creat Ratio 13.35 Ratio (12.00-20.00); Blood Urea Nitrogen 22.7 mg/dL (9.0-27.0); Calcium 9.6 mg/dL (8.7-10.3); Carbon Dioxide 22.2 mmol/L (20.0-27.5); Chloride 106 mmol/L (96-109); Globulin 3.1 g/dL (1.6-3.3); Glucose 109 mg/dL (70-110); Non-African American GFR(CKD) 36.7 (60.0-200.0); Potassium 4.9 mmol/L (3.5-5.5); Sodium 140 mmol/L (135-145); Total Protein 7.4 g/dL (6.2-8.2)
== END | disposition home or self-care (01) ==
LOC: LABWHC1 08:01
PROVIDERS: ATTEND Family Medicine
DX: E11.65 Type 2 diabetes mellitus with hyperglycemia (principal); E55.9 Vitamin D deficiency, unspecified
CPT/HCPCS: 36415; 80053; 80061; 82043; 82306; 82570; 83036

== ENCOUNTER → 2023-01-07 | Outpatient (CLI) | payer MEDICARE | END | disposition home or self-care (01) | LOC: LABWHC1 07:08 | PROVIDERS: ATTEND Family Medicine | DX: E11.65 Type 2 diabetes mellitus with hyperglycemia (principal) | CPT/HCPCS: 36415; 83036 ==

== ENCOUNTER → 2023-05-17 | Outpatient (CLI) | payer MEDICARE ==
[2023-05-17 11:31] LABS: ALT 16 U/L (10-49); AST 17 U/L (14-35); Albumin 4.1 d/dL (3.8-4.9); Albumin/Globulin Ratio 1.78 Ratio (1.60-3.17); Alkaline Phosphatase 58 U/L (41-126); BUN/Creat Ratio 14.73 Ratio (12.00-20.00); Blood Urea Nitrogen 22.1 mg/dL (9.0-27.0); Calcium 9.6 mg/dL (8.7-10.3); Carbon Dioxide 22.8 mmol/L (21.6-31.8); Chloride 107 mmol/L (96-109); Chol/HDL Ratio 2.85 Ratio; Globulin 2.3 d/dL (1.6-3.3); Glucose 120 mg/dL (70-110); LDL Cholesterol,Calculated 48.9 mg/dL (0.0-131.0); Sodium 142 mmol/L (135-145); Total Bilirubin 0.3 mg/dL (0.3-1.2); Total Protein 6.4 d/dL (6.2-8.2)
== END | disposition home or self-care (01) ==
LOC: LABWHC1 07:10
PROVIDERS: ATTEND Internal Medicine
DX: E11.65 Type 2 diabetes mellitus with hyperglycemia (principal); E55.9 Vitamin D deficiency, unspecified
CPT/HCPCS: 36415; 80053; 80061; 82043; 82306; 82570; 83036

== ENCOUNTER → 2023-09-30 | Outpatient (CLI) | payer MEDICARE ==
[2023-09-30 15:31] LABS: Chol/HDL Ratio 2.56 Ratio; LDL Cholesterol,Calculated 50.5 mg/dL (0.0-131.0)
[2023-09-30 16:20] LABS: BUN/Creat Ratio 14.44 Ratio (12.00-20.00); Blood Urea Nitrogen 23.1 mg/dL (9.0-27.0); Glucose 152 mg/dL (70-110)
[2023-09-30 16:21] LABS: ALT 21 U/L (10-49); AST 24 U/L (14-35); Albumin 4.1 g/dL (3.8-4.9); Albumin/Globulin Ratio 1.58 Ratio (1.60-3.17); Alkaline Phosphatase 63 U/L (41-126); Calcium 9.8 mg/dL (8.7-10.3); Carbon Dioxide 25.5 mmol/L (21.6-31.8); Chloride 105 mmol/L (96-109); Globulin 2.6 g/dL (1.6-3.3); Potassium 5.2 mmol/L (3.5-5.5); Sodium 142 mmol/L (135-145); Total Bilirubin 0.4 mg/dL (0.3-1.2); Total Protein 6.7 g/dL (6.2-8.2)
== END | disposition home or self-care (01) ==
LOC: LABWHC1 07:07
PROVIDERS: ATTEND Internal Medicine
DX: E11.65 Type 2 diabetes mellitus with hyperglycemia (principal); E55.9 Vitamin D deficiency, unspecified
CPT/HCPCS: 36415; 80053; 80061; 82043; 82306; 82570; 83036

== ENCOUNTER → 2024-10-30 | Outpatient (CLI) | payer MEDICARE ==
[2024-10-30 10:20] LABS: HCT 46.8 % (39.6-50.0); HGB 14.7 g/dL (13.0-17.0); MCH 29.5 pg (27.0-32.0); MCHC 31.4 g/dL (32.0-37.0); MCV 93.8 FL (80.0-97.0); Mean Platelet Volume 11.1 FL (9.5-12.2); NRBC Per 100 WBC 0 X 10*3/uL (0.00-0.01); Platelet Count 229 X 10*3/uL (140-440); RBC 4.99 X 10*6/uL (4.40-5.60); RDW 13.2 % (11.5-14.5); WBC 8.18 X 10*3/uL (4.50-10.00)
[2024-10-30 10:21] LABS: Basophils # (A) 0.03 X 10*3/uL (0.00-0.10); Basophils % (A) 0.4 %; Eosinophils # (A) 0.28 X 10*3/uL (0.04-0.35); Eosinophils % (A) 3.4 %; Monocytes # (A) 0.75 X 10*3/uL (0.20-1.00); Monocytes % (A) 9.2 %; Neutrophils # (A) 5.28 X 10*3/uL (1.80-7.70); Neutrophils % (A) 64.5 %
[2024-10-30 10:56] LABS: ALT 21 U/L (10-49); AST 19 U/L (14-35); Albumin 4.2 g/dL (3.8-4.9); Alkaline Phosphatase 69 U/L (41-126); BUN/Creat Ratio 14.65 Ratio (12.00-20.00); Blood Urea Nitrogen 24.9 mg/dL (9.0-27.0); Calcium 9.6 mg/dL (8.7-10.3); Carbon Dioxide 26.5 mmol/L (21.6-31.8); Chloride 106 mmol/L (96-109); Chol/HDL Ratio 2.69 Ratio; Globulin 2.8 g/dL (1.6-3.3); Glucose 140 mg/dL (70-110); LDL Cholesterol,Calculated 44.1 mg/dL (0.0-131.0); Potassium 4.9 mmol/L (3.5-5.5); Prostate Specific Antigen 0.77 ng/mL (0.000-6.500); Sodium 141 mmol/L (135-145); Total Bilirubin 0.4 mg/dL (0.3-1.2); Uric Acid 5.9 mg/dL (3.7-8.7)
== END | disposition home or self-care (01) ==
LOC: LABWHC1 07:01
PROVIDERS: ATTEND Internal Medicine
DX: E11.65 Type 2 diabetes mellitus with hyperglycemia (principal); E11.22 Type 2 diabetes mellitus with diabetic chronic kidney disease; N18.31 Chronic kidney disease, stage 3a; N40.0 Benign prostatic hyperplasia without lower urinary tract symptoms; Z79.4 Long term (current) use of insulin
CPT/HCPCS: 36415; 80053; 80061; 82043; 82306; 82570; 83036; 84153; 84443; 84550; 85025